=== PATIENT | female | born 1965 | race Caucasian/White ===

== ENCOUNTER 2020-04-09 14:02 | Outpatient (CLI) | payer OTHER, SELFPAY ==
--- NOTE | ~2020-04-09 | MM_ITS ---
EXAMINATION: MM screening [facility] HISTORY: Screening TECHNIQUE: Craniocaudal and mediolateral oblique 3-D tomosynthesis images were obtained and synthetic 2-D images were generated. CAD analysis was submitted and interpreted. COMPARISON: Comparison to multiple prior studies sequentially, with oldest reviewed study dated 09/14. BREAST PARENCHYMAL COMPOSITION: There are scattered areas of fibroglandular density. FINDINGS: Stable benign-appearing calcifications. There is no evidence of suspicious mass, calcificat ion, or architectural distortion to suggest malignancy in either breast. There has been no suspicious interval change. IMPRESSION: 1. No mammographic evidence of malignancy. 2. Recommend routine screening mammography in one year. BI-RADS Category 2: Benign finding(s). Reviewed, dictated and finalized at location A.
== END 2020-04-09 14:03 | disposition home or self-care (01) ==
LOC: ANHIMG 14:05
PROVIDERS: PCP Family Medicine; Visit Provider Student in an Organized Health Care Education/Training Program
DX: Z12.31 Encounter for screening mammogram for malignant neoplasm of breast (principal)
CPT/HCPCS: 77063; 77067

== ENCOUNTER 2021-05-01 10:37 | Outpatient (CLI) | payer OTHER, SELFPAY ==
--- NOTE | ~2021-05-01 | MM_ITS ---
EXAMINATION: MM screening [facility] w j carlos HISTORY: Screening TECHNIQUE: Craniocaudal and mediolateral oblique 3-D tomosynthesis images were obtained and synthetic 2-D images were generated. CAD analysis was submitted and interpreted. COMPARISON: Comparison to multiple prior studies sequentially, with oldest reviewed study dated 02/18. BREAST PARENCHYMAL COMPOSITION: There are scattered areas of fibroglandular density. FINDINGS: Stable appearance to benign-appearing bilateral breast calcifications. There is no evidence of suspicious mass, calcification, or architectural distortion to suggest malignancy in either breas t. There has been no suspicious interval change. IMPRESSION: 1. No mammographic evidence of malignancy. 2. Recommend routine screening mammography in one year. BI-RADS Category 1: Negative Reviewed, dictated and finalized at location A.
== END 2021-05-01 10:38 | disposition home or self-care (01) ==
LOC: ANHIMG 10:46
PROVIDERS: PCP Family Medicine; Visit Provider Student in an Organized Health Care Education/Training Program
DX: Z12.31 Encounter for screening mammogram for malignant neoplasm of breast (principal)
CPT/HCPCS: 77063; 77067

== ENCOUNTER 2021-05-07 02:21 | Day surgery (SDC) | payer OTHER, SELFPAY ==
[2021-04-22 14:13] VITALS: BMI 37.5
--- NOTE | 2021-05-06 14:30 | WPDANESEPPF ---
Anes - Initial Pre Proc Eval Procedure: Operation Date: 05/07/21 09:45 Proposed Procedures p Esophagogastroduodenoscopy - Vickey Cole MD Date/Time: 05/06/21 14:30 Surgeon: Vickey Cole MD Pre Op Diagnosis: dysphagia Patient Data Age: 56 Gender: F Height: 1.65 m Weight: 102.2 kg Allergies Allergy/AdvReac Type Severity Reaction Status Date / Time sulfamethoxazole Allergy Intermediate HIVES Verified 05/07/21 08:16 azithromycin Allergy Unknown counter Verified 05/07/21 08:16 acts with other medication sulfamethizole Allergy Unknown rash Verified 05/07/21 08:16 trimethoprim Allergy Unknown Hives Verified 05/07/21 08:16 Home Medications Medication Instructions Recorded Confirmed Type cetirizine 10 mg capsule 10 mg PO DAILY 08/17/19 05/07/21 History fingolimod 0.5 mg capsule 0.5 mg PO DAILY 08/17/19 05/07/21 History modafinil 200 mg tablet 200 mg PO BID 08/17/19 05/07/21 History amlodipine 10 mg tablet See Rx Instructions .ROUTE 01/17/20 05/07/21 Rx .COMPLEX #90 tablet omeprazole 40 mg capsule,delayed 40 mg PO DAILY #90 cap 07/14/20 05/07/21 Rx release montelukast 10 mg tablet 10 mg PO DAILY #90 tablet 08/04/20 05/07/21 Rx alprazolam 0.5 mg tablet 0.5 mg PO QHS PRN 12/11/20 05/07/21 History calcium citrate malate-vitamin D3 1 tablet PO DAILY 12/11/20 05/07/21 History 500 mg-200 unit tablet cholecalciferol (vitamin D3) 50 50 mcg PO DAILY 12/11/20 05/07/21 History mcg (2,000 unit) capsule irbesartan 300 mg tablet See Rx Instructions .ROUTE 12/15/20 05/07/21 Rx .COMPLEX #90 tablet ferrous gluconate 240 mg (27 mg See Rx Instructions .ROUTE 12/25/20 05/07/21 Rx iron) tablet .COMPLEX #60 tablet adcteanrjh-czqeuaq-mercdnjl 50 1 cap PO Q4H #90 cap 12/30/20 05/07/21 Rx mg-325 mg-40 mg capsule hydrochlorothiazide 12.5 mg tablet See Rx Instructions .ROUTE 01/15/21 05/07/21 Rx .COMPLEX #90 tablet estradiol 2 mg tablet See Rx Instructions .ROUTE 03/04/21 05/07/21 Rx .COMPLEX #90 tablet amoxicillin 875 mg-potassium 1 tablet PO BID #20 tablet 03/20/21 05/07/21 Rx clavulanate 125 mg tablet pregabalin 150 mg capsule 150 mg PO BID 03/20/21 05/07/21 History venlafaxine 150 mg tablet,extended 150 mg PO DAILY #90 tablet 03/20/21 05/07/21 Rx release 24 hr venlafaxine 75 mg tablet,extended 75 mg PO DAILY #90 tablet 03/20/21 05/07/21 Rx release 24 hr atorvastatin 10 mg tablet 10 mg PO QHS #90 tablet 03/26/21 05/07/21 Rx Patient hx anesthesia problems: none Family hx anesthesia problems: none Results Review: All pre-operative results and documents have been reviewed as part of the pre-operative evaluation. [facility] Past Medical History Medical History (Updated 05/06/21 @ 14:31 by Contreras Messina MD) Anxiety Chronic GERD Dysphagia Essential (primary) hypertension Herniated disc Hypercholesterolemia Multiple sclerosis Obesity (BMI 35.0-39.9 without comorbidity) Vaginal delivery Surgical History Surgical History History of back surgery History of cholecystectomy History of endometrial ablation History of total hysterectomy [place] teeth removed Family History Family History Father Hypertension Mother Hypertension Family history of lung cancer Grandparent Family history of malignant neoplasm of breast Diabetes mellitus Hypertension Family history of malignant neoplasm of breast in first degree relative Social History Social History (Updated 03/20/21 @ 10:44 by Allegra Cao CMA) Smoking status: Never smoker Second hand tobacco smoke exposure: No Alcohol intake: never Substance use type: does not use Living arrangements: with family Spiritual care concerns: No Anes - Eval Final PreProcedure Day of Procedure 05/06/21 14:30 Patient weight: obese Heart: regular rate and rhythm Lungs: clear to auscultation and n
[2021-05-07 08:17] VITALS: BP 129/87; PULSE 92; RESP 18; TEMP 36.1; O2SAT 100; BMI 37.9
[2021-05-07] MEDS: LACTATED RINGERS 1,000 ML 150 ML IV CONT (08:36)
--- NOTE | 2021-05-07 08:52 | WPDGICN ---
Assessment and Plan Assessment and plan (1) Dysphagia: Qualifiers: Dysphagia type: unspecified Qualified Code(s): R13.10 - Dysphagia, unspecified Code(s): R13.10 - Dysphagia, unspecified Status: Acute Assessment and Plan: Patient has difficulty swallowing. Is difficult to know that whether this is from esophageal narrowing or motility disorder. Plan is for EGD to assess esophagus if narrowing is noted dilatation will be accomplished. If EGD is unremarkable then modified barium swallow with speech therapy assessment is advised. This may be related to her multiple sclerosis. (2) Multiple sclerosis: Code(s): G35 - Multiple sclerosis Status: Acute Assessment and Plan: MS may contribute to difficulty swallowing with motility disorder will assess by EGD initially. (3) Obesity (BMI 35.0-39.9 without comorbidity): Code(s): E66.9 - Obesity, unspecified Status: Acute Assessment and Plan: Patient is is overweight. Suggest calorie restriction and increase activity if at all possible. GI Consult Note Consult date/time: 05/07/21 08:52 HPI: Missy Young is a 56 year old female Presents for EGD. Patient has noticed difficulty clearing of throat for several months. She states that when eating meat that is stringy she will sometimes feel as though she is choking. She presents today for EGD to assess difficulty swallowing. She denies any bleeding or weight loss. Her past history is significant for multiple sclerosis. An EGD will be performed today. Review of Systems Review of Systems: All systems reviewed & are unremarkable except as noted in HPI and below PMFSH Past Medical History Medical History (Updated 05/06/21 @ 14:31 by Contreras Messina MD) Anxiety Chronic GERD Dysphagia Essential (primary) hypertension Herniated disc Hypercholesterolemia Multiple sclerosis Obesity (BMI 35.0-39.9 without comorbidity) Vaginal delivery Surgical History Surgical History History of back surgery History of cholecystectomy History of endometrial ablation History of total hysterectomy [place] teeth removed Family History Family History Father Hypertension Mother Hypertension Family history of lung cancer Grandparent Family history of malignant neoplasm of breast Diabetes mellitus Hypertension Family history of malignant neoplasm of breast in first degree relative Social History Social History (Updated 03/20/21 @ 10:44 by Allegra Cao [facility]) Smoking status: Never smoker Second hand tobacco smoke exposure: No Alcohol intake: never Substance use type: does not use Living arrangements: with family Spiritual care concerns: No Meds Home Medications and Allergies Home Medications Medication Instructions Recorded Confirmed Type cetirizine 10 mg capsule 10 mg PO DAILY 08/17/19 05/07/21 History fingolimod 0.5 mg capsule 0.5 mg PO DAILY 08/17/19 05/07/21 History modafinil 200 mg tablet 200 mg PO BID 08/17/19 05/07/21 History amlodipine 10 mg tablet See Rx Instructions .ROUTE 01/17/20 05/07/21 Rx .COMPLEX #90 tablet omeprazole 40 mg capsule,delayed 40 mg PO DAILY #90 cap 07/14/20 05/07/21 Rx release montelukast 10 mg tablet 10 mg PO DAILY #90 tablet 08/04/20 05/07/21 Rx alprazolam 0.5 mg tablet 0.5 mg PO QHS PRN 12/11/20 05/07/21 History calcium citrate malate-vitamin D3 1 tablet PO DAILY 12/11/20 05/07/21 History 500 mg-200 unit tablet cholecalciferol (vitamin D3) 50 50 mcg PO DAILY 12/11/20 05/07/21 History mcg (2,000 unit) capsule irbesartan 300 mg tablet See Rx Instructions .ROUTE 12/15/20 05/07/21 Rx .COMPLEX #90 tablet ferrous gluconate 240 mg (27 mg See Rx Instructions .ROUTE 12/25/20 05/07/21 Rx iron) tablet .COMPLEX #60 tablet oxuavzivab-rxccpgo-hjidtozv 50 1 cap PO Q4H #90 cap 12/30/20 1
[2021-05-07 09:45] VITALS: BP 82/57; PULSE 77; RESP 19; O2SAT 99
[2021-05-07 09:55] VITALS: BP 126/68; PULSE 76; RESP 17; O2SAT 99
[2021-05-07 10:05] VITALS: BP 119/72; PULSE 75; RESP 23; O2SAT 98
== END 2021-05-07 10:14 | disposition home or self-care (01) ==
PROVIDERS: PCP Family Medicine; Visit Provider Internal Medicine Gastroenterology
PROC: 0DJ08ZZ Inspection of Upper Intestinal Tract, Via Natural or Artificial Opening Endoscopic (ICD-10-PCS; CPT 43235; principal; 2021-05-07 09:45)
DX: R13.10 Dysphagia, unspecified (principal); K21.9 Gastro-esophageal reflux disease without esophagitis; G35 Multiple sclerosis; E66.9 Obesity, unspecified; Z68.37 Body mass index [BMI] 37.0-37.9, adult; I10 Essential (primary) hypertension; E78.00 Pure hypercholesterolemia, unspecified; F41.9 Anxiety disorder, unspecified
CPT/HCPCS: 43450; 43235; J2001; J2704; J7120

== ENCOUNTER → 2021-09-28 14:40 | Outpatient (CLI) | payer OTHER, SELFPAY ==
--- NOTE | ~2021-09-28 | XR_ITS ---
EXAMINATION: XR hand RT min 3V DATE: 09/28/2021 14:57 INDICATION: Joint pain at the right hand TECHNIQUE: Posteroanterior, oblique and lateral views of the right hand were obtained. COMPARISON: None. FINDINGS: 3 mm ulnar minus variance. Alignment is otherwise normal. No fracture. Joint spaces are normal. No er osions to suggest inflammatory arthritis. Soft tissues are unremarkable. IMPRESSION: 1. 3 mm ulnar minus variance. Otherwise unremarkable right hand radiographs. Reviewed, dictated and finalized at location B.
== END ==
PROVIDERS: PCP Family Medicine; Visit Provider Physician Assistant
DX: M25.541 Pain in joints of right hand (principal)
CPT/HCPCS: 73130

== ENCOUNTER 2021-12-02 11:30 | Outpatient (CLI) | payer OTHER, SELFPAY ==
--- NOTE | 2021-12-02 11:43 | ECG_ITS ---
Measurements Intervals [place] Rate: 93 P: 33 NM: 171 QRS: -18 QRSD: 108 T: 106 QT: 368 QTc: 459 Interpretive Statements SINUS RHYTHM LEFT VENTRICULAR HYPERTROPHY AND ST-T CHANGE [VOLTAGE CRITERIA PLUS ST/T ABNORMALITY] NO PREVIOUS ECG AVAILABLE FOR COMPARISON Electronically Signed On 12-02-2021 22:13:07 CDT by Elaina Phillips M.D.
[2021-12-02 12:10] LABS: Hematocrit 36.2 % (37.0-47.0); Hemoglobin 11.5 g/dL (12.0-15.0)
[2021-12-02 12:25] LABS: Anion Gap 6 mmol/L (8-16); Blood Urea Nitrogen 22 mg/dL (7-17); Calcium 8.7 mg/dL (8.4-10.2); Carbon Dioxide 26 mmol/L (22-30); Chloride 105 mmol/L (98-107); Estimated Glomerular Filt Rate > 60; Glucose 133 mg/dL (65-110); Potassium 3.9 mmol/L (3.4-5.0); Sodium 137 mmol/L (137-145)
== END 2021-12-02 11:31 | disposition home or self-care (01) ==
LOC: ANHSURGERY 11:35
PROVIDERS: Anesthesiology; PCP Family Medicine; Visit Provider Plastic Surgery
DX: Z01.818 Encounter for other preprocedural examination (principal); D64.9 Anemia, unspecified; Z51.81 Encounter for therapeutic drug level monitoring; Z79.899 Other long term (current) drug therapy; I10 Essential (primary) hypertension
CPT/HCPCS: 36415; 80048; 85014; 85018; 93005

== ENCOUNTER 2021-12-03 00:43 | Day surgery (SDC) | payer OTHER, SELFPAY ==
[2021-11-27 15:46] VITALS: BMI 38.3
--- NOTE | 2021-11-27 15:53 | SUR.PREOP ---
Report to the Outpatient Waiting Room, entrance under the green pavilion located off [facility], at time _0600 on date 12/03/21 . OR Time: _729 . - You and your visitor will be asked a series of questions to screen for COVID 19 for your protection. - Only one visitor is allowed at this time. - The patient visitor is requested to leave or wait in car when not with patient. - A mask is required within the hospital. Patients may have clear liquids (water, carbonated beverages, clear teas, apple juice) until 3 hours prior to surgery with a maximum of 20 ounces. - No food from midnight until time of surgery - Infants may have breast milk until 4 hours before surgery, infant formula 6 hours prior to surgery. - Children will be allowed to drink immediately following surgery. If applicable, please bring a bottle or sippy cup to assist with drinking. Juice, water, soda, and popsicles are readily available. For infants on formula, please bring formula the day of surgery. Pacifiers are allowed. Take the following medications with a SIP of water the morning of surgery: __ALPRAZOLAM,AMLODIPINE,FINGOLIMOD,PREGABALIN,VENLAFEXINE Medications to discontinue per physician ___VITAMIN SUPPLEMENTS Date to take last dose__11/30/21 Please no make-up, nail swedish, hairspray, perfume, deodorant, or body powder the day of surgery. No jewelry (including any body piercings) or valuables the day of surgery, leave them at home. Please take a shower or bath the night before, or the morning of, surgery with an antibacterial soap. Wear comfortable, loose fitting clothing. Children are encouraged to wear pajamas. - Jewelry must be removed prior to entering the operating room. Rings and piercings that are not removed may be cut off. - The hospital will not accept responsibility for valuables. - Please leave all valuables, including medications, at home the day of surgery. If you are going home after surgery, a licensed local owner operator truck driver must drive you home. - NO public transportation without another adult. - We recommend that an adult stay with you for 24 hours following discharge. - We also recommend that you do not drive, make important decision, drink alcoholic beverages, or take any drugs that were not prescribed by your health care provider for at least 24 hours after your discharge time. For Pediatric surgeries, we recommend two adults accompany the child home (only one inside the building at this time). Follow any additional instructions given to you from your surgeon. If you or anyone in your household have experienced Covid symptoms in the past week, please notify your surgeon or the nurse liaison at the phone number below for possible testing. Telephone instructions given to MANUEL ANTONY and asked if any additional questions and then verbalized understanding. Patient advised to call surgeon office or pre surgery nurse liaison [phone] if any additional questions.
[2021-12-03] VITALS (8 sets, daily range): BP systolic 119–134; BP diastolic 54–81; PULSE 78–94; RESP 12–18; TEMP 36.3–36.8; O2SAT 95–100
--- NOTE | ~2021-12-03 | XR_ITS ---
EXAMINATION: XR surgery orthopedic DATE: 12/03/2021 09:11 INDICATION: Chronic right-sided gamekeeper's thumb. TECHNIQUE: 4 intraoperative fluoroscopic views of right thumb were obtained. I was not present. Fluor oscopy exposure time was 31 seconds. COMPARISON: Right hand radiographs 09/28/21 FINDINGS: There are surgical changes at the ulnar aspects of head of first metacarpal and base of fir st proximal phalanx. IMPRESSION: 1. Ulnar collateral ligament repair of metacarpophalangeal joint of right thumb. Reviewed, dictated and finalized at location A. IMPRESSION: 1. Ulnar collateral ligament repair of metacarpophalangeal joint of right thumb .
--- NOTE | 2021-12-03 06:49 | WPDANESEPPF ---
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 Patient Data Age: 56 Gender: F Height: 1.65 m Weight: 106.5 kg Allergies Allergy/AdvReac Type Severity Reaction Status Date / Time azithromycin Allergy Intermediate counter Verified 12/03/21 06:33 acts with other medication sulfamethizole Allergy Intermediate rash Verified 12/03/21 06:33 sulfamethoxazole Allergy Intermediate HIVES Verified 12/03/21 06:33 trimethoprim Allergy Intermediate Hives Verified 12/03/21 06:33 Home Medications Medication Instructions Recorded Confirmed Type cetirizine 10 mg capsule (Zyrtec) 10 mg PO BID 08/17/19 11/27/21 History fingolimod 0.5 mg capsule (Gilenya) 0.5 mg PO DAILY 08/17/19 12/03/21 History modafinil 200 mg tablet 200 mg PO BID 08/17/19 11/27/21 History alprazolam 0.5 mg tablet 0.5 mg PO QHS PRN Anxiety 12/11/20 11/27/21 History calcium citrate malate-vitamin D3 1 tablet PO DAILY 12/11/20 11/27/21 History 500 mg-200 unit tablet cholecalciferol (vitamin D3) 50 50 mcg PO DAILY 12/11/20 11/27/21 History mcg (2,000 unit) capsule ferrous gluconate 240 mg (27 mg See Rx Instructions .Route 12/25/20 11/27/21 Rx iron) tablet .COMPLEX #60 tabs pregabalin 150 mg capsule (Lyrica) 150 mg PO BID 03/20/21 12/03/21 History irbesartan 300 1 tablet PO DAILY #90 tabs 07/13/21 11/27/21 Rx mg-hydrochlorothiazide 12.5 mg tablet galcanezumab-gnlm 120 mg/mL See Rx Instructions subcut MONTHLY 09/14/21 11/27/21 Rx subcutaneous syringe (Emgality) #2 mL atorvastatin 20 mg tablet 20 mg PO QHS #90 tabs 09/29/21 11/27/21 Rx montelukast 10 mg tablet See Rx Instructions .Route 10/21/21 11/27/21 Rx .COMPLEX #90 tabs venlafaxine 75 mg capsule,extended See Rx Instructions .Route 10/21/21 12/03/21 Rx release 24 hr .COMPLEX #90 caps pantoprazole 40 mg tablet,delayed 40 mg PO QAM #90 tabs 11/16/21 11/27/21 Rx release amlodipine 10 mg tablet 10 mg PO DAILY 11/27/21 12/03/21 History aynkvpxlzm-dpubxpn-kjgabulw 50 1 cap PO WEEKLY 11/27/21 11/27/21 History mg-325 mg-40 mg capsule estradiol 2 mg tablet 2 mg PO DAILY 11/27/21 11/27/21 History venlafaxine 150 mg 1 cap PO DAILY 11/27/21 12/03/21 History capsule,extended release 24 hr diclofenac sodium 75 mg See Rx Instructions .Route 11/30/21 Rx tablet,delayed release .COMPLEX #180 tabs Patient hx anesthesia problems: none Family hx anesthesia problems: none Results Review: All pre-operative results and documents have been reviewed as part of the pre-operative evaluation. [facility] Past Medical History Medical History Anxiety Chronic GERD Dysphagia Essential (primary) hypertension Herniated disc Hypercholesterolemia Multiple sclerosis Obesity (BMI 35.0-39.9 without comorbidity) Vaginal delivery Surgical History Surgical History History of back surgery History of cholecystectomy History of endometrial ablation History of total hysterectomy [place] teeth removed Family History Family History Father Hypertension Mother Hypertension Family history of lung cancer Grandparent Family history of malignant neoplasm of breast Diabetes mellitus Hypertension Family history of malignant neoplasm of breast in first degree relative Social History Social History Smoking status: Never smoker Second hand tobacco smoke exposure: No Alcohol intake: never Substance use type: does not use Living arrangements: with family Spiritual care concerns: No
[2021-12-03] MEDS: LACTATED RINGERS 1,000 ML 30 ML IV CONT (07:03)
--- NOTE | 2021-12-03 07:12 | WPDHPUPDATE1 ---
History and Physical Update Update Date/Time: 12/03/21 07:12 History and Physical has been reviewed, including an updated exam of the patient. There are NO changes in the patient's condition. Risks, benefits, and alternatives have been discussed and questions answered. Patient agrees to proceed with procedure. Possible tendon graft from the forearm.
[2021-12-03] MEDS: ACETAMINOPHEN 500 MG TABLET 1000 MG PO (07:28)
[2021-12-03] MEDS: KETOROLAC 15 MG/ML VIAL (*BKC) IV PUSH (07:28)
[2021-12-03] MEDS: LIDO 1%/EPINEPHRINE/PF 1:200,000 30 ML VIAL XX (09:17)
--- NOTE | 2021-12-03 10:02 | P.OP_ITS ---
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 She was taken to the operating room and placed supine operating table. Instability of this joint with swelling but normal flexion and extension range of motion were again noted. She was given general endotracheal anesthesia. The extremity was prepped and draped in usual fashion. The site was marked for an access incision centered on the ulnar metacarpophalangeal joint . This area was infiltrated with 1% lidocaine with epinephrine. The extremity was exsanguinated with an Onur wrap and the tourniquet inflated to 250 mmHg. The incision was made and skin flaps elevated. The incision in the adductor pollicis was made parallel to the extensor pollicis longus and the aponeurosis was dissected palmar word. The injury to the ulnar collateral ligament was identified as an intraligamentous rupture. The distal portion well inserted and fully usable. The proximal stump was less easily identified but there was no avulsed bone or Stener lesion. With that finding we elected to simply repair the site with an Arthrex internal brace. The Arthrex drill guides, reamers and swivel locks were utilized with the 1.3 mm SutureTape. The sites on the metacarpal head and the base of the proximal phalanx were identified and K-wires were placed in those sites. The wires were over drilled with the 3.5 mm gouge bit and the anchors sunk. The initial pl acement of the the proximal anchor did not provide sufficient stability due to the placement of the anchor being too dorsal. A 2nd swivel lock was placed slightly more palmarward and proximally in the metacarpal . The suture tape from the base of the proximal phalanx was bridged over the ulnar collateral ligament to the new site and fixed to the SwiveLock. The previously placed tape was not removed. It did not seem to interfere with range of motion nor did appreciably improve stability, but was left. This construct appeared to be very satisfactory. The capsule was repaired there was no tear between the volar plate and collateral ligament and no sutures were placed there. The abductor aponeurosis was repaired with 3-0 Prolene. The skin was closed with a running intradermal 4-0 Monocryl. A bulky gauze and radial distal forearm thumb spica splint were applied. Estimated Blood Loss 3 Pathology None sent Complications No immediate complications Disposition PACU
[2021-12-03] MEDS: oxyCODONE HCL (*CRX) 5 MG TAB IR PO (10:42)
== END 2021-12-03 11:52 | disposition home or self-care (01) ==
PROVIDERS: PCP Family Medicine; Visit Provider Plastic Surgery
PROC: (CPT 26540; principal; 2021-12-03 07:30)
DX: S63.418A Traumatic rupture of collateral ligament of other finger at metacarpophalangeal and interphalangeal joint, initial encounter (principal); W19.XXXA Unspecified fall, initial encounter; I10 Essential (primary) hypertension; E78.5 Hyperlipidemia, unspecified; G35 Multiple sclerosis; K21.9 Gastro-esophageal reflux disease without esophagitis; F41.9 Anxiety disorder, unspecified; E66.01 Morbid (severe) obesity due to excess calories; Z68.39 Body mass index [BMI] 39.0-39.9, adult
CPT/HCPCS: 26540; 36415; 80048; 85014; 85018; 93005; A9270; C1713; J1100; J1885; J2250; J2405; J2704; J3010; J7120

== ENCOUNTER 2022-01-29 13:30 | Outpatient (RCR) | payer OTHER, SELFPAY ==
--- NOTE | 2021-12-31 14:52 | OTOPEVAL ---
OCCUPATIONAL THERAPY INITIAL EVALUATION REPORT 12/31/21 Thank you for referring Missy Young to [facility].? The patient is scheduled to be seen for therapy? 1x/week for 4 weeks. Please review, sign, date and return this plan of care LOIS. I agree with and certify that the following plan of care is medically necessary. Referring Physician Date Referring Provider: Alexis Calvin MD *OT Outpatient Evaluation Start: 12/31/21 13:37 Outpatient Past Medical History Past Medical History Source of Past Medical History Recalled from Previous Visit, Confirmed with Patient/Family Neurological History Hx Migraine Yes Hx Multiple Sclerosis Yes Hx Other Neurological Disorders Yes: MS,neuropathy,hands and feet Cardiovascular History Hx Hypercholesterolemia Yes Hx Hypertension Yes Respiratory History Hx Respiratory Disorders No Significant History Gastrointestinal History Hx Cholecystectomy Yes Hx Gastroesophageal Reflux Disease Yes Genitourinary History Hx Kidney Stones Yes: lithotripsy Hx Other Genitourinary Disorders Yes: incontinence with botox injections q 6 months Musculoskeletal History Hx Back Injury Yes: herniated discs Hx Spinal Surgery Yes: lower back Hx Other Musculoskeletal Disorders Yes: MS Hematological History Hx Anemia Yes Endocrine History Hx Endocrine Disorders No Significant History HEENT History Hx Tonsillectomy Yes Hx Sinus Problems Yes Hx Other HEENT Disorders Yes: optic neuritis,swallowing problems with egd Integumentary History Hx Skin Disorders No Significant History Reproductive History Hx Endometriosis Yes Hx Hormone Therapy Yes Hx Tubal Ligation Yes Psychosocial History Hx Anxiety Yes Pain History Has Past Pain Affected Your Daily Life Yes: MS Anesthesia History Hx Anesthesia Reactions No Significant History Evaluation Information Problem Diagnosis s/p repair of chronic right 1st UCL with Arthrex Internal Brace Onset 12/03/21 Subjective Information Patient reports difficulties Query Text:As Reported By Patient/ with using her right hand/ Family thumb - noting being unable to pinch to don/doff a bra, start her car, etc. Pain Assessment Timing of Pain Assessment Timing of Pain Assessment Assessment Pain Scale Pain Scale Used Numeric (1 - 10) Self Report Pain Assessment Right Hand(s) Reported Pain Level 2 Pain Descript
--- NOTE | 2022-01-29 14:22 | OTOPEVAL ---
OCCUPATIONAL THERAPY RE-EVALUATION AND DISCHARGE SUMMARY 01/29/22 Marianne Louis , is a 56 year-old right handed female who is 8 weeks s/p repair of the right thumb UCL. She presents today for re-evaluation. At this time her ROM has returned to normal limits and she is weaning out of her splint for ADL tasks (only wearing for heavy tasks PRN at this time). Her oil seal assembler/pinch strength measurements were taken today and she does exhibit weakness, but she has her HEP to work on this. She is having no pain with oil seal assembler/pinch strength HEP. Overall she has progressed well and is ready for discharged from OT services. Thank you for referring Missy Young to [facility]. Please review, sign, date and return this D/C Note LOIS. I agree with and certify that the following plan of care is medically necessary. 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 Query Text:As Reported By Patient/ States she is weaning out of Family her splint and is now able to picker and sorter load and unload and put away dishes, tying shoes, staring her car, and donning/doffing her bra. Reports some sensitivity in the area of the stitch abscess . Pain Assessment Timing of Pain Assessment Timing of Pain Assessment Re-assessment Pain Scale Pain Scale Used Numeric (1 - 10) Self Report Pain Assessment Right Hand(s) Reported Pain Level 0 Lowest Pain Intensity 0 Greatest Pain Intensity 4 Pain Score Pain Score 0: Self Report Additional Pain Score Comments Experiences some soreness after hand use, rating 4/10 at worst . Upper Extremity Range of Motion Wrist Range of Motion Right Reason Not Measured WNL/Right Finger Range of Motion Right Reason Not Measured WNL/Right Thumb Range of Motion Right Thumb MCP Flexion - Active 75 Thumb IP Flexion - Active 65 Thumb CMC Radial Abduction - Active 50 Thumb CMC Palmar Abduction - Active 50 Thumb Range of Motion Comments thumb active ROM returned to normal limits Hand Rotary Drier Operator/Pinch Strength Assessment Hand Left Rotary Drier Operator Strength (lbs) 41 Lateral Pinch Strength (lbs) 2.5 Palmar Pinch Strength (lbs) 3.5 Right Rotary Drier Operator Strength (lbs) 22 Lateral Pinch Strength (lbs) 1 Palmar Pinch Strength (lbs) 1 Upper Extremity Exercise Finger/Thumb Exercise Right Other Finger/Thumb Exercises Reviewed veroniquety HEP. Issued next strength (red), patient
== END 2022-03-19 13:40 | disposition home or self-care (01) ==
LOC: ANHOT 13:30
PROVIDERS: PCP Family Medicine; Referring Provider Plastic Surgery; Visit Provider Plastic Surgery
DX: Z48.89 Encounter for other specified surgical aftercare (principal)
CPT/HCPCS: 97110; 97165; 97763; L3806

== ENCOUNTER → 2022-02-11 10:35 | Outpatient (CLI) | payer OTHER, SELFPAY ==
--- NOTE | ~2022-02-11 | US_ITS ---
US abdomen complete EXAMINATION: US Abdomen Complete INDICATION: Abnormal liver cyst of serum enzyme PROCEDURE: Realtime High Resolution abdomen ultrasound. COMPARISON: Ultrasound dated 03/27/2005 FINDINGS: Gallbladder is surgically absent. Common bile duct measures 5 mm. Liver echotexture within normal limits without focal mass. Pancreas within normal limits. Pancreati c tail is obscured by bowel gas. Spleen is unremarkeable. Renal echotexture is within normal limits bilaterally without hydronephrosis, contour deforming mass or renal stone. Right kidney measures 8.8 cm. Left kidney measures 9.5 cm. Visualized aspects of the aorta and IVC are within normal limits. Portal vein is patent. No sonograph ic Bella's sign indicated by the technologist. IMPRESSION: 1: Unremarkable abdominal ultrasound postcholecystectomy. Reviewed, dictated and finalized at location B.
== END ==
PROVIDERS: PCP Physician Assistant; Visit Provider Physician Assistant
DX: R74.8 Abnormal levels of other serum enzymes (principal)
CPT/HCPCS: 76700

== ENCOUNTER 2022-03-29 14:14 | Outpatient (NON) | payer OTHER, SELFPAY ==
[2022-03-29 22:35] LABS: IFOB Positive Control Positive; Immunochemical Fecal Occult Bl Negative (N)
== END 2022-03-29 14:15 | disposition home or self-care (01) ==
LOC: ANHGOSHLAB 14:15
PROVIDERS: PCP Emergency Medicine; Visit Provider Physician Assistant
DX: D64.9 Anemia, unspecified (principal)
CPT/HCPCS: 82274

== ENCOUNTER 2022-09-03 15:01 | Outpatient (CLI) | payer OTHER, MEDICARE, SELFPAY ==
[2022-09-03 19:27] LABS: Basophils Percent Auto 0.4 % (0.2-1.2); Eosinophils Absolute Auto 0.2 K/mm3 (0-0.3); Eosinophils Percent Auto 2.1 % (0-4.4); Hematocrit 35.2 % (37.0-47.0); Hemoglobin 11.7 g/dL (12.0-15.0); Immature Granulocyte Absolute 0.04 K/mm3 (0.00-0.031); Immature Granulocyte Percent A 0.5 % (0-0.5); Lymphocytes Absolute Auto 0.86 K/mm3 (0.9-3.2); Lymphocytes Percent Auto 10.7 % (18.3-44.2); Mean Corpuscular HGB Conc 33.2 g/dl (32-36); Mean Corpuscular Hemoglobin 31.1 pg (26-34); Mean Corpuscular Volume 93.6 fl (80-100); Mean Platelet Volume 10.1 fl (7.4-10.4); Monocytes Absolute Auto 0.5 K/mm3 (0.1-0.6); Monocytes Percent Auto 6.1 % (2.6-8.5); Neutrophils Absolute Auto 6.4 K/mm3 (1.3-6.7); Neutrophils Percent Auto 80.2 % (45.5-73.1); Platelet Count Result 362 k/mm3 (150-375); Red Blood Count 3.76 M/mm3 (4.2-5.4); Red Cell Distribution Width 12.6 % (11.5-14.5)
[2022-09-03 19:29] LABS: Alanine Aminotransferase 22 U/L (6-35); Albumin Level 4.2 g/dL (3.5-5.1); Alkaline Phosphatase 126 U/L (38-126); Anion Gap 7 mmol/L (8-16); Aspartate Amino Transferase 32 U/L (14-36); Bilirubin,Total 0.5 mg/dL (0.2-1.3); Blood Urea Nitrogen 19 mg/dL (7-17); Calcium 9.4 mg/dL (8.4-10.2); Carbon Dioxide 29 mmol/L (22-30); Chloride 100 mmol/L (98-107); Cholesterol 232 mg/dL (0-200); Estimated Glomerular Filt Rate > 60; Glucose 96 mg/dL (65-110); HDL Direct 56 mg/dL; Potassium 3.4 mmol/L (3.4-5.0); Sodium 136 mmol/L (137-145); Triglycerides 191 mg/dL (<150)
[2022-09-03 19:36] LABS: Hemoglobin A1C 5.3 % (<5.7)
[2022-09-03 19:40] LABS: LDL Cholesterol Direct 116 mg/dL
[2022-09-03 19:54] LABS: Thyroid Stimulating Hormone 0.979 uIU/mL (0.465-4.680)
== END 2022-09-03 15:02 | disposition home or self-care (01) ==
LOC: ANHGOSHLAB 15:03
PROVIDERS: PCP Emergency Medicine; Visit Provider Emergency Medicine
DX: R73.01 Impaired fasting glucose (principal); I10 Essential (primary) hypertension; E78.00 Pure hypercholesterolemia, unspecified; E66.01 Morbid (severe) obesity due to excess calories; D64.9 Anemia, unspecified; R74.8 Abnormal levels of other serum enzymes; Z79.899 Other long term (current) drug therapy
CPT/HCPCS: 36415; 80053; 80061; 83036; 84443; 85025

== ENCOUNTER 2022-10-18 15:12 | Outpatient (CLI) | payer MEDICARE, OTHER, SELFPAY ==
--- NOTE | ~2022-10-18 | MM_ITS ---
EXAMINATION: MM screening [facility] BI w j carlos HISTORY: Screening mammogram TECHNIQUE: Craniocaudal and mediolateral oblique 3-D tomosynthesis images were obtained and synthetic 2-D images were generated. CAD analysis was submitted and interpreted. COMPARISON: 05/01/2021, 04/09/2020, 04/05/2019 bilateral screening mammogram examinations BREAST PARENCHYMAL COMPOSITION: There are scattered areas of fibroglandular density. FINDINGS: There are scattered bilateral benign calcifications. There is however indeterminate cluster of grouped granular appearing microcalcifications in the lower inner quadrant of the right breast as sociated with approximately 4 x 7.7 mm soft tissue density.. Differential diagnosis includes superfic ial calcifications of a fibroadenoma, but malignancy is not definitively excluded based on this exami nation.. Right diagnostic mammogram and ultrasound are recommended. Otherwise there is no evidence of suspicious mass, calcification, or architectural distortion to sugg est malignancy in either breast. There has been no other suspicious interval change. IMPRESSION: 1. Indeterminant cluster of grouped granular appearing microcalcifications in the lower inner quadran t of the right breast 2. Diagnostic right mammogram and right breast ultrasound examination are recommended BI-RADS Category 0: Incomplete: Needs additional imaging evaluation. Reviewed, dictated and finalized at location A. IMPRESSION: 1. Indeterminant cluster of grouped granular appearing microcalcifications in t he lower inner quadrant of the right breast 2. Diagnostic right mammogram and right breast ultrasound examination are recom mended BI-RADS Category 0: Incomplete: Needs additional imaging evaluation.
== END 2022-10-18 15:13 | disposition home or self-care (01) ==
PROVIDERS: PCP Emergency Medicine; Visit Provider Physician Assistant
DX: Z12.31 Encounter for screening mammogram for malignant neoplasm of breast (principal); R92.8 Other abnormal and inconclusive findings on diagnostic imaging of breast
CPT/HCPCS: 77063; 77067

== ENCOUNTER 2022-11-09 13:16 | Outpatient (CLI) | payer MEDICARE, OTHER, SELFPAY ==
--- NOTE | ~2022-11-09 | MM_ITS ---
EXAMINATION: MM diagnostic mammo unilat RT HISTORY: Right breast calcifications on screening mammogram TECHNIQUE: Additional images of the right breast were performed and synthetic 2-D images were generat ed. CAD analysis was submitted and interpreted. COMPARISON: 10/18/2022, 05/01/2021, 04/09/2020 FINDINGS: There are faint grouped calcifications in the middle third of the lower breast at the 6:00 location approximately 8 cm from the nipple which appear to be round in morphology but are difficult to characterize due to their small size. IMPRESSION: 1. Probably benign right breast calcifications. 2. Recommend 6 month follow-up right diagnostic mammogram and possible ultrasound. BI-RADS category 3, probably benign findings. Reviewed, dictated and finalized at location A. IMPRESSION: 1. Probably benign right breast calcifications. 2. Recommend 6 month follow-up right diagnostic mammogram and possible ultrasou nd. BI-RADS category 3, probably benign findings.
== END 2022-11-09 13:17 | disposition home or self-care (01) ==
PROVIDERS: PCP Emergency Medicine; Visit Provider Physician Assistant
DX: R92.8 Other abnormal and inconclusive findings on diagnostic imaging of breast (principal)
CPT/HCPCS: 77065

== ENCOUNTER 2023-04-29 11:37 | Inpatient (IN) | payer MEDICARE, OTHER, SELFPAY ==
[2023-04-29] VITALS (24 sets, daily range): BP systolic 102–131; BP diastolic 46–78; PULSE 100–113; RESP 13–32; TEMP 37.1–38.4; O2SAT 92–99; BMI 40.5
--- NOTE | ~2023-04-29 | XR_ITS ---
EXAMINATION: XR chest 1V portable DATE: 04/29/2023 12:17 INDICATION: Cough and fever. TECHNIQUE: A single frontal view of the chest was obtained. COMPARISON: Chest 2 views 01/17/2017 FINDINGS: There are airspace opacities in all right lung zones, worst in the mid and lower lung zones . There are mild airspace opacities in left lower lung zone. No pleural effusion or pneumothorax. The heart size is normal. Surgical clips in the right upper quadrant are likely from cholecystectomy. IMPRESSION: 1. Predominantly right-sided lung disease, consistent with pneumonia. Reviewed, dictated and finalized at location E.
--- NOTE | ~2023-04-29 | XR_ITS ---
EXAMINATION: XR chest 2V DATE: 05/02/2023 12:10 INDICATION: COVID pneumonia TECHNIQUE: AP and lateral views of the chest are obtained. COMPARISON: 04/29/2023 FINDINGS: Diffuse airspace opacities of the right lung and left basilar airspace opacities persist bu t have decreased. There are small pleural effusions. No pneumothorax is identified. The cardiomediast inal silhouette is normal. There is mild thoracic spondylosis. IMPRESSION: 1. Improved diffuse lung disease, consistent with pneumonia. Reviewed, dictated and finalized at location B. PRODUCTS DEMONSTRATOR
--- NOTE | 2023-04-29 12:14 | ED.URI ---
HPI - URI/Sore Throat General Chief Complaint: Upper Respiratory Infection Stated Complaint: sob, cough Time Seen by Provider: 04/29/23 12:02 History of Present Illness HPI Narrative: Patient is a 58-year-old female who presents to the emergency department to this afternoon complaining of cough, shortness of breath, and fevers. Patient states that she tested positive for COVID in February and ever since then she has had a lingering cough, however, she was feeling well until a few days ago where she started to feel ill again. She called her primary care physician who called in a prescription for Tessalon Perles and another medication she cannot remember at this time which the patient had filled yesterday. Patient states that throughout the night she started to have chills and became very short of breath and at this morning she decided to come to the emergency department for further evaluation. Patient denies any chest pain, nausea, vomiting, abdominal pain, dysuria, hematuria, constipation, diarrhea, melena or hematochezia. She also denies any headaches, dizziness, lightheadedness, blurry visions, focal weakness, numbness and or tingling. There are no other modifying, alleviating, or precipitating factors at this time. Related Data Home Medications Medication Instructions Recorded Confirmed cetirizine 10 mg capsule (Zyrtec) 10 mg PO BID 08/17/19 04/29/23 fingolimod 0.5 mg capsule (Gilenya) 0.5 mg PO DAILY 08/17/19 04/29/23 modafinil 200 mg tablet 200 mg PO BID 08/17/19 04/29/23 pregabalin 150 mg capsule (Lyrica) 150 mg PO ONCE 03/20/21 04/29/23 Vitamin D3 250 mcg BYMOUTH DAILY 04/29/23 04/29/23 amlodipine 10 mg tablet 10 mg PO DAILY 04/29/23 04/29/23 diclofenac sodium 75 mg PO BID 04/29/23 04/29/23 montelukast 10 mg tablet 10 mg PO DAILY 04/29/23 04/29/23 oxybutynin chloride 10 mg 10 mg PO DAILY 04/29/23 04/29/23 tablet,extended release 24 hr Allergies Allergy/AdvReac Type Severity Reaction Status Date / Time azithromycin Allergy Intermediate counter Verified 04/29/23 11:56 acts with other medication sulfamethizole Allergy Intermediate rash Verified 04/29/23 11:56 sulfamethoxazole Allergy Intermediate HIVES Verified 04/29/23 11:56 trimethoprim Allergy Intermediate Hives Verified 04/29/23 11:56 Review of Systems Review of Systems: All systems are reviewed and are negative unless stated otherwise in the HPI. [facility] Past Medical History Medical History Anxiety Chronic GERD Dysphagia Essential (primary) hypertension Herniated disc Hypercholesterolemia Multiple sclerosis Obesity (BMI 35.0-39.9 without comorbidity) Urinary urgency Surgical History Surgical History H/O hand surgery Repair of chronic right 1st metacarpophalangeal joint ulnar collateral ligament with Arthrex internal brace Dr. 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 Surrogate decision maker: Selina Young, daughter if unable to contact her . Okay with Timmy and Ilene Little (uncle and aunt) obtaining medical information/updates over the phone. Code Status: Full Code. Smoking status: Never smoker Second hand tobacco smoke exposure: No Alcohol intake: never Substance
[2023-04-29] MEDS: ACETAMINOPHEN 325 MG TABLET 650 MG PO (12:32)
[2023-04-29 12:37] LABS: Hematocrit 32.1 % (37.0-47.0); Hemoglobin 10.5 g/dL (12.0-15.0); Mean Corpuscular HGB Conc 32.7 g/dl (32-36); Mean Corpuscular Hemoglobin 30.1 pg (26-34); Mean Platelet Volume 9.8 fl (7.4-10.4); Platelet Count Result 291 k/mm3 (150-375); Red Blood Count 3.49 M/mm3 (4.2-5.4); White Blood Count 10.9 K/mm3 (4.5-10.0)
[2023-04-29 12:43] LABS: Alanine Aminotransferase 41 U/L (6-35); Albumin Level 3.6 g/dL (3.5-5.1); Alkaline Phosphatase 159 U/L (38-126); Anion Gap 4 mmol/L (8-16); Aspartate Amino Transferase 64 U/L (14-36); Blood Urea Nitrogen 21 mg/dL (7-17); Calcium 8.5 mg/dL (8.4-10.2); Carbon Dioxide 28 mmol/L (22-30); Chloride 102 mmol/L (98-107); Estimated CRCL calculation 100 ml/min; Estimated Glomerular Filt Rate > 60; Glucose 129 mg/dL (65-110); Potassium 3.4 mmol/L (3.4-5.0); Sodium 134 mmol/L (137-145)
[2023-04-29 12:48] LABS: Band Neutrophils Percent 26 % (0-6); Lymphocytes Absolute Manual 0.21 K/mm3 (1.1-4.5); Monocytes Absolute Manual 0.21 K/mm3 (0.1-0.90); Monocytes Percent Manual 2 % (3-9); Neutrophils Absolute Manual 10.46 K/mm3 (1.7-7.2); Neutrophils Percent Manual 70 % (46-73); Platelet Estimate Adequate (Adequate); Total Cells Counted 100
[2023-04-29 12:49] LABS: Schistocytes None Seen (NORMAL)
[2023-04-29 12:53] LABS: Influenza A QL RT-PCR Negative (Negative); Influenza B QL RT-PCR Negative (Negative); RSV RNA, RT-PCR Negative (Negative); SARS-CoV-2 RNA PCR Positive (Negative)
[2023-04-29] MEDS: SODIUM CHLORIDE 0.9% IV 500 ML 50 ML IV CONT (13:39)
[2023-04-29] MEDS: SODIUM CHLORIDE 0.9% IV 1,000 ML 999 ML IV CONT (13:39)
[2023-04-29 14:03] LABS: Lactic Acid Reflex 1.5 mmol/L (0.7-2.0)
[2023-04-29] MEDS: DOXYCYCLINE 100 MG/NS 100 ML 100 MG/100 ML BAG IVPB (14:20)
--- NOTE | 2023-04-29 16:03 | PC.NURSE ---
This patient, Missy Young, was admitted to Medical Room 247-. Patient/family oriented to hospital policies and general routines including ID bracelet, bed and alarms, visiting hours, pain management, procedures, bathroom and other care routines, personal items, smoking policy, room service/diet, and visiting hours. Information on how to activate the Rapid Response Team has been discussed. Patient/Family are encouraged to report perceived risks to care and to ask questions if they do not understand what they are told or what they should do.
[2023-04-29] MEDS: ONDANSETRON INJ 4 MG/2 ML VIAL IV PUSH (18:52)
[2023-04-29] MEDS: DICLOFENAC SOD 75 MG TABLET.EC PO (18:52)
--- NOTE | 2023-04-29 19:00 | PM.IMHP ---
H&P: HPI History of Present Illness Date/Time: 04/29/23 19:00 Chief Complaint: SOB, Body Aches Narrative: 58-year-old female presents here with shortness of breath, cough, and fatigue with past medical history of anxiety, GERD, HTN, HLD, and MS. Patient reports that she being to feel unwell 2-3 days ago. Originally called her PCP for cough medication. However within the last 24 hours she has become increasingly short of breath, weak, and fatigued. Patient has been experiencing subjective fevers, body aches, and intermittent sputum production. Tested positive for COVID on 04/12. Had time after intial illness where she felt better. Only other sick contact is her father, also began feeling unwell and is currently admitted at this hospital. Told he does not have pneumonia, COVID, flu and is being treated for a UTI. after arrival to the emergency department was noted that she was satting 90% on room air. Placed on 2 L nasal cannula with improvement in saturation to 95%. She currently denies chest pain, nausea, vomiting, or diarrhea. Patient is currently on an immune modulator for her MS, follows with Neurology. Review of Systems Review of Systems: All systems reviewed & are unremarkable except as noted in HPI and below PMFSH Past Medical History Medical History Anxiety Chronic GERD Dysphagia Essential (primary) hypertension Herniated disc Hypercholesterolemia Multiple sclerosis Obesity (BMI 35.0-39.9 without comorbidity) Urinary urgency Surgical History Surgical History H/O hand surgery Repair of chronic right 1st metacarpophalangeal joint ulnar collateral ligament with Arthrex internal brace Dr. 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 Surrogate decision maker: Selina Young, daughter if unable to contact her . Okay with Timmy and Ilene Little (uncle and aunt) obtaining medical information/updates over the phone. Code Status: Full Code. Smoking status: Never smoker Second hand tobacco smoke exposure: No Alcohol intake: never Substance use: never Substance use type: does not use Lack of Transportation: No Lack of Food: Never True Current Housing: I Have Housing Concerned About Future Housing: No Difficulty Paying Gas/Electric Bills: No Difficulty Paying for Meds: No Currently Unemployed: No Education: Associate Degree Difficulty w/ Childcare or Family Care: No Living arrangements: with family Occupation/Education: other Additional occupation/education comments: Disability Gender identity (if verbalized by the patient): Female Sexual Orientation (if Verbalized by the Patient): Straight or Heterosexual Spiritual care concerns: No Meds Home Medications and Allergies Home Medications Medication Instructions Recorded Confirmed Type cetirizine 10 mg capsule (Zyrtec) 10 mg PO BID 08/17/19 04/29/23 History fingolimod 0.5 mg capsule (Gilenya) 0.5 mg PO DAILY 08/17/19 04/29/23 History modafinil 200 mg tablet 200 mg PO BID 08/17/19 04/29/23 History pregabalin 150 mg capsule (Lyrica) 150 mg PO ONCE 03/20/21 04/29/23 History irbesartan 300 1 tablet PO DAILY #90 tabs 07/27/22 04/29/23 Rx mg-hydrochlorothiazid
[2023-04-29] MEDS: LORATADINE 10 MG TABLET PO (21:18)
[2023-04-29] MEDS: modafiniL (*CRX) 200 MG TABLET PO (21:18)
[2023-04-29] MEDS: ACETAMINOPHEN 325 MG TABLET PO (22:24)
[2023-04-30] MEDS: BENZONATATE 100 MG CAPSULE PO ×2 (00:19→21:39)
[2023-04-30] MEDS: DOXYCYCLINE 100 MG/NS 100 ML 100 MG/100 ML BAG IVPB ×2 (01:24→16:44)
[2023-04-30] MEDS: LACTATED RINGERS 1,000 ML 100 ML IV CONT ×2 (01:24→21:40)
[2023-04-30 04:00] VITALS: BP 108/61; PULSE 79; RESP 12; TEMP 36.7; O2SAT 94
[2023-04-30 04:55] LABS: Hematocrit 28.8 % (37.0-47.0); Hemoglobin 9.1 g/dL (12.0-15.0); Mean Corpuscular HGB Conc 31.6 g/dl (32-36); Mean Platelet Volume 10.3 fl (7.4-10.4); Platelet Count Result 278 k/mm3 (150-375); Red Blood Count 3.03 M/mm3 (4.2-5.4); Red Cell Distribution Width 14.5 % (11.5-14.5); White Blood Count 11.5 K/mm3 (4.5-10.0)
[2023-04-30 05:06] LABS: Alanine Aminotransferase 33 U/L (6-35); Alkaline Phosphatase 131 U/L (38-126); Anion Gap 4 mmol/L (8-16); Aspartate Amino Transferase 41 U/L (14-36); Bilirubin,Total 1.2 mg/dL (0.2-1.3); Blood Urea Nitrogen 18 mg/dL (7-17); Calcium 7.5 mg/dL (8.4-10.2); Carbon Dioxide 28 mmol/L (22-30); Chloride 104 mmol/L (98-107); Estimated CRCL calculation 81 ml/min; Estimated Glomerular Filt Rate > 60; Glucose 104 mg/dL (65-110); Potassium 3.2 mmol/L (3.4-5.0); Sodium 136 mmol/L (137-145)
--- NOTE | 2023-04-30 07:14 | PM.IMPN ---
Progress Note: A&P Assessment and Plan (1) Pneumonia: Qualifiers: Pneumonia type: due to unspecified organism Code(s): J18.9 - Pneumonia, unspecified organism Status: Acute Assessment and Plan: 1. pneumonia new oxygen requirement (2L NC), 90% on RA. continue supplementation. CXR: airspace opacities in all right lung zones, worst in the mid and lower lung zones. There are mild airspace opacities in left lower lung zone. consistent with PNA. tx initiated for CAP: doxycycline and ceftriaxone, continue. allergy to azithromycin. May need to escalated to Cefe/Vanco given her immunosuppression. Mild increase in leukocytosis since admission. Will correlate clinically. sputum culture MRSA screen pending tyl/codeine PO PRN TYL prn for fever or pain Tessalon Perles p.r.n. for cough + guaifenesin/DM monitor daily labs She completed a course of Paxlovid when initially diagnosed. Since she is immunocompromised she is still testing positive for COVID. I spoke with the pharmacist and there are recent suggestions that those who are immunocompromised may need extended courses or repeat courses of remdesivir or Paxlovid. Will add on Remdesivir to her regimen. Okay to use with mild transaminitis, only contraindicated when liver enzymes are 10 x greater than the normal. (2) Sepsis: Code(s): A41.9 - Sepsis, unspecified organism Status: Acute Assessment and Plan: 2. sepsis SIRS Criteria: +temp of 38.4C, HR 113, RR 25. no evidence of organ failure. lactate WNL. blood cultures sent, pending aggressive fluid resuscitation not indicated. Patient is not hypotensive and lactate is within normal limits. Will continue with gentle fluid support, given 1 L in ED. LR 100 mL/hr x2L. Repeat lactate in AM. continue to monitor (3) Elevated liver enzymes: Code(s): R74.8 - Abnormal levels of other serum enzymes Status: Acute Assessment and Plan: 3. elevated liver enzymes likely med related. currently on gilenya for MS, continued due to current condition. monitor LFTs. Stable 04/30 refer back to neuro for possible change in med regimen. Plan Diet: Regular GI Prophylaxis: not currently indicated DVT Prophylaxis: SCDs, Lovenox 40 Lines: pIV Code Status: full code. Of note patient is okay with her aunt and uncle, Timmy and Pat Sansoucie, receiving medical information over the phone if they call for updates. Subjective Date/time seen: 04/30/23 07:14 Interval history: HPI obtained from the chart, 58-year-old female presents here with shortness of breath, cough, and fatigue with past medical history of anxiety, GERD, HTN, HLD, and MS. Patient reports that she being to feel unwell 2-3 days ago.? Originally called her PCP for cough medication.? However within the last 24 hours she has become increasingly short of breath, weak, and fatigued.? Patient has been experiencing subjective fevers, body aches, and intermittent sputum production.? Tested positive for COVID on 04/12.? Had time after initial illness where she felt better.? Only other sick contact is her father, also began feeling unwell and is currently admitted at this hospital.? Told he does not have pneumonia, COVID, flu and is being treated for a UTI.? ? after arrival to the emergency department was noted that she was satting 90% on room air.? Placed on 2 L nasal cannula with improvement in saturation to 95%. She currently denies chest pain, nausea, vomiting, or diarrhea. ? Patient is currently on an immune modulator for her MS, follows with Neurology. 04/30: Mrs. Young is seen today resting in bed. She does not appear to be feeling well but is in no acute respiratory distress. She says that for the last week or 2 she has been having a cough, shortness of breath at rest, weakness, nausea without vomiting, headache, sore throat, dizziness and overall generalized feelings of fatigue. She also reports decr
[2023-04-30] MEDS: POTASSIUM CHLORIDE 20 MEQ ER TABLET 40 MEQ PO (09:27)
[2023-04-30] MEDS: DICLOFENAC SOD 75 MG TABLET.EC PO ×2 (09:30→17:49)
[2023-04-30] MEDS: estradioL 0.5 MG TABLET 2 MG PO (09:31)
[2023-04-30] MEDS: ENOXAPARIN 40 MG/0.4 ML SYRINGE SUB-Q (09:31)
[2023-04-30] MEDS: hydroCHLOROthiazide 12.5 MG CAPSULE PO (09:33)
[2023-04-30] MEDS: IRBESARTAN 150 MG TABLET 300 MG PO (09:33)
[2023-04-30] MEDS: LORATADINE 10 MG TABLET PO ×2 (09:34→21:36)
[2023-04-30] MEDS: modafiniL (*CRX) 200 MG TABLET PO (09:34)
[2023-04-30] MEDS: MONTELUKAST SODIUM 10 MG TABLET PO (09:35)
[2023-04-30] MEDS: oxyBUTYnin CHLORIDE XL 5 MG TAB.ER.24 10 MG PO (09:35)
[2023-04-30] MEDS: PANTOPRAZOLE 40 MG TABLET PO (09:36)
[2023-04-30] MEDS: VENLAFAXINE HCL XR 75 MG CAP.ER.24H PO (09:38)
[2023-04-30] MEDS: VENLAFAXINE HCL XR 75 MG CAP.ER.24H 150 MG PO (09:38)
[2023-04-30] MEDS: amLODIPine BESYLATE 5 MG TABLET 10 MG PO (09:39)
[2023-04-30 13:26] LABS: INR 1.1; Prothrombin Time 14.2 Seconds (11.1-14.7)
[2023-04-30 14:00] VITALS: BP 124/66; PULSE 98; RESP 20; TEMP 36.6; O2SAT 96
[2023-04-30] MEDS: guaiFENesin 600 MG/DEXTROMETHORPHAN 30 MG SR TAB 12 HR 1 TAB PO ×2 (14:54→21:36)
--- NOTE | 2023-04-30 15:00 | PC.NURSE ---
Lost IV access at 1450. Will administer IV antibiotics once new IV access is established.
[2023-04-30] MEDS: PHENOL/SOD PHENO SPRAY CHERRY (*BKC) 1 SPRAY MUCOUS MEM (15:04)
[2023-04-30] MEDS: REMDESIVIR 200 MG/NS 250 ML 200 MG/250 ML BAG 250 MG IVPB (17:50)
[2023-04-30 19:32] VITALS: BP 103/65; PULSE 92; RESP 18; TEMP 36.4; O2SAT 95
[2023-04-30 21:35] VITALS: O2SAT 95
[2023-04-30] MEDS: ACETAMINOPHEN/BUTALBITAL/CAFFEINE 325-50-40 MG TABLET (FIORICET) 1 TAB PO (21:35)
[2023-05-01] MEDS: DOXYCYCLINE 100 MG/NS 100 ML 100 MG/100 ML BAG IVPB ×2 (01:17→15:30)
[2023-05-01] MEDS: ACETAMINOPHEN/BUTALBITAL/CAFFEINE 325-50-40 MG TABLET (FIORICET) 1 TAB PO (02:38)
[2023-05-01] MEDS: BENZONATATE 100 MG CAPSULE PO (04:55)
[2023-05-01 05:15] VITALS: BP 118/71; PULSE 92; RESP 18; TEMP 37; O2SAT 94
[2023-05-01 05:32] LABS: Hematocrit 30.5 % (37.0-47.0); Hemoglobin 9.5 g/dL (12.0-15.0); Mean Corpuscular HGB Conc 31.1 g/dl (32-36); Mean Corpuscular Hemoglobin 29.9 pg (26-34); Mean Corpuscular Volume 95.9 fl (80-100); Mean Platelet Volume 10.1 fl (7.4-10.4); Platelet Count Result 287 k/mm3 (150-375); Red Blood Count 3.18 M/mm3 (4.2-5.4); Red Cell Distribution Width 14.2 % (11.5-14.5); White Blood Count 9.5 K/mm3 (4.5-10.0)
[2023-05-01 05:54] LABS: Alanine Aminotransferase 26 U/L (6-35); Albumin Level 3.3 g/dL (3.5-5.1); Alkaline Phosphatase 134 U/L (38-126); Anion Gap 3 mmol/L (8-16); Aspartate Amino Transferase 29 U/L (14-36); Bilirubin,Total 0.6 mg/dL (0.2-1.3); Blood Urea Nitrogen 11 mg/dL (7-17); Calcium 7.9 mg/dL (8.4-10.2); Carbon Dioxide 27 mmol/L (22-30); Chloride 104 mmol/L (98-107); Estimated CRCL calculation 105 ml/min; Estimated Glomerular Filt Rate > 60; Glucose 105 mg/dL (65-110); Potassium 3.6 mmol/L (3.4-5.0); Sodium 134 mmol/L (137-145)
--- NOTE | 2023-05-01 06:49 | PM.IMPN ---
Progress Note: A&P Assessment and Plan (1) Pneumonia: Code(s): J18.9 - Pneumonia, unspecified organism Status: Acute Assessment and Plan: 1. pneumonia new oxygen requirement (2L NC), 90% on RA. continue supplementation. CXR: airspace opacities in all right lung zones, worst in the mid and lower lung zones. There are mild airspace opacities in left lower lung zone. consistent with PNA. tx initiated for CAP: doxycycline and ceftriaxone, continue. allergy to azithromycin. May need to escalated to Cefe/Vanco given her immunosuppression. Mild increase in leukocytosis since admission. Will correlate clinically. sputum culture MRSA screen pending tyl/codeine PO PRN TYL prn for fever or pain Tessalon Perles p.r.n. for cough + guaifenesin/DM monitor daily labs Leukocytosis is downtrending. She completed a course of Paxlovid when initially diagnosed. Since she is immunocompromised she is still testing positive for COVID. I spoke with the pharmacist and there are recent suggestions that those who are immunocompromised may need extended courses or repeat courses of remdesivir or Paxlovid. Will add on Remdesivir to her regimen. Okay to use with mild transaminitis, only contraindicated when liver enzymes are 10 x greater than the normal. (2) Sepsis: Code(s): A41.9 - Sepsis, unspecified organism Status: Acute Assessment and Plan: 2. sepsis SIRS Criteria: +temp of 38.4C, HR 113, RR 25. no evidence of organ failure. lactate WNL. blood cultures sent, pending aggressive fluid resuscitation not indicated. Patient is not hypotensive and lactate is within normal limits. Will continue with gentle fluid support, given 1 L in ED. LR 100 mL/hr x2L. Repeat lactate in AM. continue to monitor (3) Elevated liver enzymes: Code(s): R74.8 - Abnormal levels of other serum enzymes Status: Acute Assessment and Plan: 3. elevated liver enzymes likely med related. currently on gilenya for MS, continued due to current condition. monitor LFTs. Stable 04/30 and decreasing 05/01 refer back to neuro for possible change in med regimen. (4) Migraine: Qualifiers: Migraine type: unspecified Status migrainosus presence: without status migrainosus Intractability: not intractable Qualified Code(s): G43.909 - Migraine, unspecified, not intractable, without status migrainosus Code(s): G43.909 - Migraine, unspecified, not intractable, without status migrainosus Status: Acute Assessment and Plan: H/O migraine h/a. Typically takes Fingolimod. prn home medication is not working gave 1 x dose of sumatriptan but she vomited shortly after Gave migraine IV cocktail of Toradol 30 mg, Benadryl 50 mg, and Compazine 10 mg. Now sleeping. Plan Diet: Regular GI Prophylaxis: not currently indicated DVT Prophylaxis: SCDs, Lovenox 40 Lines: pIV Code Status: full code. Of note patient is okay with her aunt and uncle, Timmy and Ilene Little, receiving medical information over the phone if they call for updates. Subjective Date/time seen: 05/01/23 06:49 Interval history: HPI obtained from the chart, 58-year-old female presents here with shortness of breath, cough, and fatigue with past medical history of anxiety, GERD, HTN, HLD, and MS. Patient reports that she being to feel unwell 2-3 days ago.? Originally called her PCP for cough medication.? However within the last 24 hours she has become increasingly short of breath, weak, and fatigued.? Patient has been experiencing subjective fevers, body aches, and intermittent sputum production.? Tested positive for COVID on 04/12.? Had time after initial illness where she felt better.? Only other sick contact is her father, also began feeling unwell and is currently admitted at this hospital.? Told he does not have pneumonia, COVID, flu and is being treated for a UTI.? ? after arrival to the emergency department w
[2023-05-01 08:09] VITALS: BP 137/66; PULSE 102; RESP 20; O2SAT 92
[2023-05-01] MEDS: SUMAtriptan SUCCINATE 25 MG TABLET 50 MG PO (08:12)
[2023-05-01] MEDS: ONDANSETRON INJ 4 MG/2 ML VIAL IV PUSH (08:25)
[2023-05-01 09:30] VITALS: O2SAT 92
[2023-05-01] MEDS: KETOROLAC 30 MG/ML VIAL (*BKC) IV PUSH (10:48)
[2023-05-01] MEDS: diphenhydrAMINE HCl INJ 50 MG/ML VIAL IV PUSH (10:48)
[2023-05-01] MEDS: PROCHLORPERAZINE EDISYLATE 10 MG/2 ML VIAL IV PUSH (10:49)
[2023-05-01] MEDS: REMDESIVIR 100 MG/NS 250 ML 100 MG/250 ML BAG 250 MG IVPB (10:58)
[2023-05-01] MEDS: estradioL 0.5 MG TABLET 2 MG PO (13:47)
[2023-05-01] MEDS: ENOXAPARIN 40 MG/0.4 ML SYRINGE SUB-Q (13:47)
[2023-05-01] MEDS: amLODIPine BESYLATE 5 MG TABLET 10 MG PO (13:48)
[2023-05-01] MEDS: IRBESARTAN 150 MG TABLET 300 MG PO (13:49)
[2023-05-01] MEDS: MONTELUKAST SODIUM 10 MG TABLET PO (13:50)
[2023-05-01] MEDS: oxyBUTYnin CHLORIDE XL 5 MG TAB.ER.24 10 MG PO (13:54)
[2023-05-01] MEDS: PANTOPRAZOLE 40 MG TABLET PO (13:56)
[2023-05-01] MEDS: VENLAFAXINE HCL XR 75 MG CAP.ER.24H 150 MG PO (13:56)
[2023-05-01] MEDS: VENLAFAXINE HCL XR 75 MG CAP.ER.24H PO (13:59)
[2023-05-01 14:00] VITALS: BP 140/73; PULSE 105; RESP 20; TEMP 36.7; O2SAT 94
[2023-05-01] MEDS: hydroCHLOROthiazide 12.5 MG CAPSULE PO (14:00)
[2023-05-01] MEDS: DICLOFENAC SOD 75 MG TABLET.EC PO (19:04)
[2023-05-01 20:00] VITALS: O2SAT 94
[2023-05-01] MEDS: LORATADINE 10 MG TABLET PO (20:15)
[2023-05-01] MEDS: guaiFENesin 600 MG/DEXTROMETHORPHAN 30 MG SR TAB 12 HR 1 TAB PO (20:15)
[2023-05-01 21:30] VITALS: BP 124/64; PULSE 99; RESP 20; TEMP 36.6; O2SAT 90
[2023-05-02] VITALS (12 sets, daily range): BP systolic 107–142; BP diastolic 48–68; PULSE 81–96; RESP 16–20; TEMP 36.1–36.9; O2SAT 92–97
[2023-05-02] MEDS: DOXYCYCLINE 100 MG/NS 100 ML 100 MG/100 ML BAG IVPB ×2 (02:01→14:32)
[2023-05-02] MEDS: BENZONATATE 100 MG CAPSULE PO ×2 (02:08→23:02)
[2023-05-02 05:57] LABS: Hematocrit 30.6 % (37.0-47.0); Hemoglobin 9.6 g/dL (12.0-15.0); Mean Corpuscular HGB Conc 31.4 g/dl (32-36); Mean Corpuscular Hemoglobin 29.9 pg (26-34); Mean Corpuscular Volume 95.3 fl (80-100); Mean Platelet Volume 9.9 fl (7.4-10.4); Platelet Count Result 313 k/mm3 (150-375); Red Blood Count 3.21 M/mm3 (4.2-5.4); Red Cell Distribution Width 13.9 % (11.5-14.5); White Blood Count 8.9 K/mm3 (4.5-10.0)
[2023-05-02 06:06] LABS: Alanine Aminotransferase 21 U/L (6-35); Albumin Level 3.2 g/dL (3.5-5.1); Alkaline Phosphatase 122 U/L (38-126); Anion Gap 8 mmol/L (8-16); Aspartate Amino Transferase 25 U/L (14-36); Bilirubin,Total 0.6 mg/dL (0.2-1.3); Blood Urea Nitrogen 12 mg/dL (7-17); Calcium 8.2 mg/dL (8.4-10.2); Carbon Dioxide 24 mmol/L (22-30); Chloride 103 mmol/L (98-107); Estimated CRCL calculation 105 ml/min; Estimated Glomerular Filt Rate > 60; Glucose 91 mg/dL (65-110); Potassium 3.6 mmol/L (3.4-5.0); Sodium 135 mmol/L (137-145)
--- NOTE | 2023-05-02 07:23 | P.PNIM_ITS ---
Progress Note: A&P Assessment and Plan (1) Pneumonia: Code(s): J18.9 - Pneumonia, unspecified organism Status: Acute Assessment and Plan: 03/31/23: * new oxygen requirement (2L NC), 90% on RA. continue supplementation. * CXR: airspace opacities in all right lung zones, worst in the mid and lower lung zones. There are mild airspace opacities in left lower lung zone. consistent with PNA. * tx initiated for CAP: doxycycline and ceftriaxone, continue. allergy to azithromycin. May need to escalated to Cefe/Vanco given her immunosuppression. Mild increase in leukocytosis since admission. Will correlate clinically. * sputum culture * MRSA screen pending * tyl/codeine PO PRN * TYL prn for fever or pain * Tessalon Perles p.r.n. for cough + guaifenesin/DM * monitor daily labs * Leukocytosis is downtrending. * She completed a course of Paxlovid when initially diagnosed. Since she is immunocompromised she is still testing positive for COVID. I spoke with the pharmacist and there are recent suggestions that those who are immunocompromised may need extended courses or repeat courses of remdesivir or Paxlovid. Will add on Remdesivir to her regimen. Okay to use with mild transaminitis, only contraindicated when liver enzymes are 10 x greater than the normal. 04/01/23: * Currently on 2 L nasal cannula, crackles noted to right lower lobe * Will repeat chest x-ray today * Continue Rocephin and doxycycline * Continue with Remdesivir * MRSA was negative * Blood cultures pending * WBC count 8.9 * Start albuterol treatments today * Continue tessalon perles and guaifenesin DM * PT and OT ordered (2) Sepsis: Code(s): A41.9 - Sepsis, unspecified organism Status: Acute Assessment and Plan: 03/31/23: * SIRS Criteria: +temp of 38.4C, HR 113, RR 25. no evidence of organ failure. lactate WNL. * blood cultures sent, pending * aggressive fluid resuscitation not indicated. Patient is not hypotensive and lactate is within normal limits. Will continue with gentle fluid support, given 1 L in ED. LR 100 mL/hr x2L. Repeat lactate in AM. * continue to monitor 04/01/23: * (3) Elevated liver enzymes: Code(s): R74.8 - Abnormal levels of other serum enzymes Status: Acute Assessment and Plan: 03/31/23: * likely med related. currently on gilenya for MS, continued due to current condition. * monitor LFTs. Stable 04/30 and decreasing 05/01 * refer back to neuro for possible change in med regimen. 04/01/23: * no change to current treatment plan (4) Migraine: Qualifiers: Intractability: not intractable Migraine type: unspecified Status migrainosus presence: without status migrainosus Qualified Code(s): G43.909 - Migraine, unspecified, not intractable, without status migrainosus Code(s): G43.909 - Migraine, unspecified, not intractable, without status migrainosus Status: Acute Assessment and Plan: 03/31/23: * H/O migraine h/a. Typically takes Fingolimod. * prn home medication is not working * gave 1 x dose of sumatriptan but she vomited shortly after * Gave migraine IV cocktail of Toradol 30 mg, Benadryl 50 mg, and Compazine 10 mg. Now sleeping. 04/01/23: * C/O of headache again today, will give another Migraine cocktail today as it seemed to help her yesterday * home medication still not helping Time Spent With Patient Time with patient: Greater than 35 minutes Subjective Date/time seen: 05/02/23 07:23 Interval history: Inter
--- NOTE | 2023-05-02 07:23 | PM.IMPN ---
Progress Note: A&P Assessment and Plan (1) Pneumonia: Code(s): J18.9 - Pneumonia, unspecified organism Status: Acute Assessment and Plan: 03/31/23: new oxygen requirement (2L NC), 90% on RA. continue supplementation. CXR: airspace opacities in all right lung zones, worst in the mid and lower lung zones. There are mild airspace opacities in left lower lung zone. consistent with PNA. tx initiated for CAP: doxycycline and ceftriaxone, continue. allergy to azithromycin. May need to escalated to Cefe/Vanco given her immunosuppression. Mild increase in leukocytosis since admission. Will correlate clinically. sputum culture MRSA screen pending tyl/codeine PO PRN TYL prn for fever or pain Tessalon Perles p.r.n. for cough + guaifenesin/DM monitor daily labs Leukocytosis is downtrending. She completed a course of Paxlovid when initially diagnosed. Since she is immunocompromised she is still testing positive for COVID. I spoke with the pharmacist and there are recent suggestions that those who are immunocompromised may need extended courses or repeat courses of remdesivir or Paxlovid. Will add on Remdesivir to her regimen. Okay to use with mild transaminitis, only contraindicated when liver enzymes are 10 x greater than the normal. 04/01/23: Currently on 2 L nasal cannula, crackles noted to right lower lobe Will repeat chest x-ray today Continue Rocephin and doxycycline Continue with Remdesivir MRSA was negative Blood cultures pending WBC count 8.9 Start albuterol treatments today Continue tessalon perles and guaifenesin DM PT and OT ordered (2) Sepsis: Code(s): A41.9 - Sepsis, unspecified organism Status: Acute Assessment and Plan: 03/31/23: SIRS Criteria: +temp of 38.4C, HR 113, RR 25. no evidence of organ failure. lactate WNL. blood cultures sent, pending aggressive fluid resuscitation not indicated. Patient is not hypotensive and lactate is within normal limits. Will continue with gentle fluid support, given 1 L in ED. LR 100 mL/hr x2L. Repeat lactate in AM. continue to monitor 04/01/23: (3) Elevated liver enzymes: Code(s): R74.8 - Abnormal levels of other serum enzymes Status: Acute Assessment and Plan: 03/31/23: likely med related. currently on gilenya for MS, continued due to current condition. monitor LFTs. Stable 04/30 and decreasing 05/01 refer back to neuro for possible change in med regimen. 04/01/23: no change to current treatment plan (4) Migraine: Qualifiers: Intractability: not intractable Migraine type: unspecified Status migrainosus presence: without status migrainosus Qualified Code(s): G43.909 - Migraine, unspecified, not intractable, without status migrainosus Code(s): G43.909 - Migraine, unspecified, not intractable, without status migrainosus Status: Acute Assessment and Plan: 03/31/23: H/O migraine h/a. Typically takes Fingolimod. prn home medication is not working gave 1 x dose of sumatriptan but she vomited shortly after Gave migraine IV cocktail of Toradol 30 mg, Benadryl 50 mg, and Compazine 10 mg. Now sleeping. 04/01/23: C/O of headache again today, will give another Migraine cocktail today as it seemed to help her yesterday home medication still not helping Time Spent With Patient Time with patient: Greater than 35 minutes Subjective Date/time seen: 05/02/23 07:23 Interval history: Interval history 05/02/23: This is a 58 year old female who presented to the hospital on 04/29/23 with SOB, cough, and fatigue. Work up in the hospital includes a Chest x-ray that shown predominantly right sided pneumonia consistent with pneumonia. She had a respiratory panel done as well which shows that she is COVID + however she tested positive for COVID on 04/12/23 and this positive result may not be accurate. Blood cultures and MRSA was obtained. She was started on c
[2023-05-02 08:21] LABS: Magnesium 1.9 mg/dL (1.6-2.3); Phosphorus 2.5 mg/dL (2.5-4.5)
[2023-05-02 08:45] LABS: Procalcitonin 0.5 ng/mL
[2023-05-02] MEDS: guaiFENesin 600 MG/DEXTROMETHORPHAN 30 MG SR TAB 12 HR 1 TAB PO ×2 (09:03→20:21)
[2023-05-02] MEDS: estradioL 1 MG TABLET 2 MG PO (09:03)
[2023-05-02] MEDS: amLODIPine BESYLATE 5 MG TABLET 10 MG PO (09:04)
[2023-05-02] MEDS: VENLAFAXINE HCL XR 75 MG CAP.ER.24H 150 MG PO (09:08)
[2023-05-02] MEDS: DICLOFENAC SOD 75 MG TABLET.EC PO ×2 (09:09→17:42)
[2023-05-02] MEDS: IRBESARTAN 150 MG TABLET 300 MG PO (09:09)
[2023-05-02] MEDS: VENLAFAXINE HCL XR 75 MG CAP.ER.24H PO (09:10)
[2023-05-02] MEDS: hydroCHLOROthiazide 12.5 MG CAPSULE PO (09:10)
[2023-05-02] MEDS: MONTELUKAST SODIUM 10 MG TABLET PO (09:10)
[2023-05-02] MEDS: oxyBUTYnin CHLORIDE XL 5 MG TAB.ER.24 10 MG PO (09:11)
[2023-05-02] MEDS: ACETAMINOPHEN 325 MG TABLET PO (09:11)
[2023-05-02] MEDS: REMDESIVIR 100 MG/NS 250 ML 100 MG/250 ML BAG 250 MG IVPB (09:12)
[2023-05-02] MEDS: ENOXAPARIN 40 MG/0.4 ML SYRINGE SUB-Q (09:12)
[2023-05-02] MEDS: LORATADINE 10 MG TABLET PO ×2 (09:12→20:21)
[2023-05-02] MEDS: PANTOPRAZOLE 40 MG TABLET PO (09:12)
[2023-05-02] MEDS: ALBUTEROL SULFATE NEB 2.5 MG/3 ML INH INHALATION ×3 (09:56→21:07)
[2023-05-02] MEDS: diphenhydrAMINE HCl INJ 50 MG/ML VIAL IV PUSH (14:12)
[2023-05-02] MEDS: KETOROLAC 30 MG/ML VIAL (*BKC) IV PUSH (14:12)
[2023-05-02] MEDS: PROCHLORPERAZINE EDISYLATE 10 MG/2 ML VIAL IV PUSH (14:21)
--- NOTE | 2023-05-02 14:29 | PC.NURSE ---
All care, medications and assessments performed by Gerda Calderon, Student Nurse/[facility] has been completed under direct supervision of [place] Guest Services Officer or Nursing Staff. Charting has been reviewed and agree with same. Any questions or concerns presented by patient and/or family has been relayed to appropriate staff.
[2023-05-03] VITALS (12 sets, daily range): BP systolic 107–132; BP diastolic 48–60; PULSE 78–99; RESP 14–20; TEMP 36.5–36.9; O2SAT 92–99
[2023-05-03] MEDS: DOXYCYCLINE 100 MG/NS 100 ML 100 MG/100 ML BAG IVPB ×2 (02:05→15:12)
[2023-05-03 06:13] LABS: Basophils Percent Auto 0.5 % (0.2-1.2); Eosinophils Absolute Auto 0.2 K/mm3 (0-0.3); Eosinophils Percent Auto 2.8 % (0-4.4); Hematocrit 33.4 % (37.0-47.0); Hemoglobin 10.4 g/dL (12.0-15.0); Immature Granulocyte Absolute 0.09 K/mm3 (0.00-0.031); Immature Granulocyte Percent A 1.1 % (0-0.5); Lymphocytes Absolute Auto 0.45 K/mm3 (0.9-3.2); Lymphocytes Percent Auto 5.3 % (18.3-44.2); Mean Corpuscular HGB Conc 31.1 g/dl (32-36); Mean Corpuscular Hemoglobin 29.7 pg (26-34); Mean Corpuscular Volume 95.4 fl (80-100); Mean Platelet Volume 9.9 fl (7.4-10.4); Monocytes Absolute Auto 0.5 K/mm3 (0.1-0.6); Monocytes Percent Auto 5.5 % (2.6-8.5); Neutrophils Absolute Auto 7.2 K/mm3 (1.3-6.7); Neutrophils Percent Auto 84.8 % (45.5-73.1); Platelet Count Result 332 k/mm3 (150-375); White Blood Count 8.5 K/mm3 (4.5-10.0)
[2023-05-03 06:28] LABS: Alanine Aminotransferase 19 U/L (6-35); Albumin Level 3.5 g/dL (3.5-5.1); Alkaline Phosphatase 130 U/L (38-126); Anion Gap 10 mmol/L (8-16); Aspartate Amino Transferase 24 U/L (14-36); Bilirubin,Total 0.7 mg/dL (0.2-1.3); Blood Urea Nitrogen 11 mg/dL (7-17); Calcium 8.4 mg/dL (8.4-10.2); Carbon Dioxide 22 mmol/L (22-30); Chloride 102 mmol/L (98-107); Estimated CRCL calculation 105 ml/min; Estimated Glomerular Filt Rate > 60; Glucose 105 mg/dL (65-110); Potassium 3.3 mmol/L (3.4-5.0); Sodium 134 mmol/L (137-145)
[2023-05-03] MEDS: ALBUTEROL SULFATE NEB 2.5 MG/3 ML INH INHALATION ×3 (08:11→20:22)
--- NOTE | 2023-05-03 08:23 | P.PNIM_ITS ---
Progress Note: A&P Assessment and Plan (1) Sepsis: Code(s): A41.9 - Sepsis, unspecified organism Status: Acute Assessment and Plan: 05/01/23: * SIRS Criteria: +temp of 38.4C, HR 113, RR 25. no evidence of organ failure. lactate WNL. * blood cultures sent, pending * aggressive fluid resuscitation not indicated. Patient is not hypotensive and lactate is within normal limits. Will continue with gentle fluid support, given 1 L in ED. LR 100 mL/hr x2L. Repeat lactate in AM. * continue to monitor 05/02/23: * see below, sepsis resolved (2) Pneumonia: Code(s): J18.9 - Pneumonia, unspecified organism Status: Acute Assessment and Plan: 05/01/23: * new oxygen requirement (2L NC), 90% on RA. continue supplementation. * CXR: airspace opacities in all right lung zones, worst in the mid and lower lung zones. There are mild airspace opacities in left lower lung zone. consistent with PNA. * tx initiated for CAP: doxycycline and ceftriaxone, continue. allergy to azithromycin. May need to escalated to Cefe/Vanco given her immunosuppression. Mild increase in leukocytosis since admission. Will correlate clinically. * sputum culture * MRSA screen pending * tyl/codeine PO PRN * TYL prn for fever or pain * Tessalon Perles p.r.n. for cough + guaifenesin/DM * monitor daily labs * Leukocytosis is downtrending. * She completed a course of Paxlovid when initially diagnosed. Since she is immunocompromised she is still testing positive for COVID. I spoke with the pharmacist and there are recent suggestions that those who are immunocompromised may need extended courses or repeat courses of remdesivir or Paxlovid. Will add on Remdesivir to her regimen. Okay to use with mild transaminitis, only contraindicated when liver enzymes are 10 x greater than the normal. 05/02/23: * Currently on 2 L nasal cannula, crackles noted to right lower lobe * Will repeat chest x-ray today * Continue Rocephin and doxycycline * Continue with Remdesivir * MRSA was negative * Blood cultures pending * WBC count 8.9 * Start albuterol treatments today * Continue tessalon perles and guaifenesin DM * PT and OT ordered 05/03/23: * Still on 2 L nasal cannula, incentive spirometer ordered for 10 times per hour * Chest x-ray shows marked improvement in her pneumonia * Continue with IV antibiotics for now due to poor intake. * Continue with remdesivir * Blood culture showing no growth day 3 * White blood cell count 8.5 * Continue with PT and OT (3) Elevated liver enzymes: Code(s): R74.8 - Abnormal levels of other serum enzymes Status: Acute Assessment and Plan: 05/01/23: * likely med related. currently on gilenya for MS, continued due to current condition. * monitor LFTs. Stable 04/30 and decreasing 05/01 * refer back to neuro for possible change in med regimen. 05/02/23: * no change to current treatment plan (4) Migraine: Qualifiers: Intractability: not intractable Migraine type: unspecified Status migrainosus presence: without status migrainosus Qualified Code(s): G43.909 - Migraine, unspecified, not intractable, without status migrainosus Code(s): G43.909 - Migraine, unspecified, not intractable, without status migrainosus Status: Acute Assessment and Plan: 05/01/23: * H/O migraine h/a. Typically takes Fingolimod. * prn home medication is not working * gave 1 x dose of sumatriptan but she vomited shortly after * Gave migraine IV cocktail of Toradol 30 mg, Benadryl 50 mg, and Compazi
--- NOTE | 2023-05-03 08:23 | PM.IMPN ---
Progress Note: A&P Assessment and Plan (1) Sepsis: Code(s): A41.9 - Sepsis, unspecified organism Status: Acute Assessment and Plan: 05/01/23: SIRS Criteria: +temp of 38.4C, HR 113, RR 25. no evidence of organ failure. lactate WNL. blood cultures sent, pending aggressive fluid resuscitation not indicated. Patient is not hypotensive and lactate is within normal limits. Will continue with gentle fluid support, given 1 L in ED. LR 100 mL/hr x2L. Repeat lactate in AM. continue to monitor 05/02/23: see below, sepsis resolved (2) Pneumonia: Code(s): J18.9 - Pneumonia, unspecified organism Status: Acute Assessment and Plan: 05/01/23: new oxygen requirement (2L NC), 90% on RA. continue supplementation. CXR: airspace opacities in all right lung zones, worst in the mid and lower lung zones. There are mild airspace opacities in left lower lung zone. consistent with PNA. tx initiated for CAP: doxycycline and ceftriaxone, continue. allergy to azithromycin. May need to escalated to Cefe/Vanco given her immunosuppression. Mild increase in leukocytosis since admission. Will correlate clinically. sputum culture MRSA screen pending tyl/codeine PO PRN TYL prn for fever or pain Tessalon Perles p.r.n. for cough + guaifenesin/DM monitor daily labs Leukocytosis is downtrending. She completed a course of Paxlovid when initially diagnosed. Since she is immunocompromised she is still testing positive for COVID. I spoke with the pharmacist and there are recent suggestions that those who are immunocompromised may need extended courses or repeat courses of remdesivir or Paxlovid. Will add on Remdesivir to her regimen. Okay to use with mild transaminitis, only contraindicated when liver enzymes are 10 x greater than the normal. 05/02/23: Currently on 2 L nasal cannula, crackles noted to right lower lobe Will repeat chest x-ray today Continue Rocephin and doxycycline Continue with Remdesivir MRSA was negative Blood cultures pending WBC count 8.9 Start albuterol treatments today Continue tessalon perles and guaifenesin DM PT and OT ordered 05/03/23: Still on 2 L nasal cannula, incentive spirometer ordered for 10 times per hour Chest x-ray shows marked improvement in her pneumonia Continue with IV antibiotics for now due to poor intake. Continue with remdesivir Blood culture showing no growth day 3 White blood cell count 8.5 Continue with PT and OT (3) Elevated liver enzymes: Code(s): R74.8 - Abnormal levels of other serum enzymes Status: Acute Assessment and Plan: 05/01/23: likely med related. currently on gilenya for MS, continued due to current condition. monitor LFTs. Stable 04/30 and decreasing 05/01 refer back to neuro for possible change in med regimen. 05/02/23: no change to current treatment plan (4) Migraine: Qualifiers: Intractability: not intractable Migraine type: unspecified Status migrainosus presence: without status migrainosus Qualified Code(s): G43.909 - Migraine, unspecified, not intractable, without status migrainosus Code(s): G43.909 - Migraine, unspecified, not intractable, without status migrainosus Status: Acute Assessment and Plan: 05/01/23: H/O migraine h/a. Typically takes Fingolimod. prn home medication is not working gave 1 x dose of sumatriptan but she vomited shortly after Gave migraine IV cocktail of Toradol 30 mg, Benadryl 50 mg, and Compazine 10 mg. Now sleeping. 05/02/23: C/O of headache again today, will give another Migraine cocktail today as it seemed to help her yesterday home medication still not helping 05/03/23: Patient states that her headache is much better today however not completely gone. I encourage patient to reach out if she starts having a really bad headache again and we can always put in for the migraine cocktail. Time Spent With Patient Time wi
[2023-05-03] MEDS: VENLAFAXINE HCL XR 75 MG CAP.ER.24H PO (09:18)
[2023-05-03] MEDS: oxyBUTYnin CHLORIDE XL 5 MG TAB.ER.24 10 MG PO (09:18)
[2023-05-03] MEDS: IRBESARTAN 150 MG TABLET 300 MG PO (09:18)
[2023-05-03] MEDS: VENLAFAXINE HCL XR 75 MG CAP.ER.24H 150 MG PO (09:18)
[2023-05-03] MEDS: LORATADINE 10 MG TABLET PO ×2 (09:18→20:35)
[2023-05-03] MEDS: hydroCHLOROthiazide 12.5 MG CAPSULE PO (09:19)
[2023-05-03] MEDS: guaiFENesin 600 MG/DEXTROMETHORPHAN 30 MG SR TAB 12 HR 1 TAB PO ×2 (09:19→20:35)
[2023-05-03] MEDS: estradioL 1 MG TABLET 2 MG PO (09:19)
[2023-05-03] MEDS: PANTOPRAZOLE 40 MG TABLET PO (09:19)
[2023-05-03] MEDS: modafiniL (*CRX) 200 MG TABLET PO (09:19)
[2023-05-03] MEDS: MONTELUKAST SODIUM 10 MG TABLET PO (09:19)
[2023-05-03] MEDS: DICLOFENAC SOD 75 MG TABLET.EC PO ×2 (09:19→17:31)
[2023-05-03] MEDS: POTASSIUM CHLORIDE 20 MEQ ER TABLET 40 MEQ PO (09:19)
[2023-05-03] MEDS: ENOXAPARIN 40 MG/0.4 ML SYRINGE SUB-Q (09:20)
[2023-05-03] MEDS: amLODIPine BESYLATE 5 MG TABLET 10 MG PO (09:25)
[2023-05-03] MEDS: REMDESIVIR 100 MG/NS 250 ML 100 MG/250 ML BAG 250 MG IVPB (09:25)
[2023-05-04] MEDS: DOXYCYCLINE 100 MG/NS 100 ML 100 MG/100 ML BAG IVPB (02:01)
[2023-05-04 03:34] VITALS: BP 115/52; PULSE 76; RESP 20; TEMP 36.8; O2SAT 94
[2023-05-04 05:29] LABS: Basophils Percent Auto 0.4 % (0.2-1.2); Eosinophils Absolute Auto 0.3 K/mm3 (0-0.3); Eosinophils Percent Auto 4.1 % (0-4.4); Hematocrit 33.6 % (37.0-47.0); Hemoglobin 10.6 g/dL (12.0-15.0); Immature Granulocyte Percent A 1.2 % (0-0.5); Lymphocytes Absolute Auto 0.72 K/mm3 (0.9-3.2); Lymphocytes Percent Auto 8.9 % (18.3-44.2); Mean Corpuscular HGB Conc 31.5 g/dl (32-36); Mean Corpuscular Hemoglobin 29.6 pg (26-34); Mean Corpuscular Volume 93.9 fl (80-100); Mean Platelet Volume 10.1 fl (7.4-10.4); Monocytes Absolute Auto 0.5 K/mm3 (0.1-0.6); Monocytes Percent Auto 6.2 % (2.6-8.5); Neutrophils Absolute Auto 6.4 K/mm3 (1.3-6.7); Neutrophils Percent Auto 79.2 % (45.5-73.1); Platelet Count Result 343 k/mm3 (150-375); Prothrombin Time 13.6 Seconds (11.1-14.7); Red Blood Count 3.58 M/mm3 (4.2-5.4); Red Cell Distribution Width 14.1 % (11.5-14.5); White Blood Count 8.1 K/mm3 (4.5-10.0)
[2023-05-04 05:38] LABS: Alanine Aminotransferase 17 U/L (6-35); Albumin Level 3.3 g/dL (3.5-5.1); Alkaline Phosphatase 125 U/L (38-126); Anion Gap 7 mmol/L (8-16); Aspartate Amino Transferase 25 U/L (14-36); Bilirubin,Total 0.5 mg/dL (0.2-1.3); Blood Urea Nitrogen 11 mg/dL (7-17); Calcium 8.4 mg/dL (8.4-10.2); Carbon Dioxide 24 mmol/L (22-30); Chloride 104 mmol/L (98-107); Estimated CRCL calculation 105 ml/min; Estimated Glomerular Filt Rate > 60; Glucose 105 mg/dL (65-110); Potassium 3.2 mmol/L (3.4-5.0); Sodium 135 mmol/L (137-145)
[2023-05-04] MEDS: ALBUTEROL SULFATE NEB 2.5 MG/3 ML INH INHALATION (07:49)
[2023-05-04 07:50] VITALS: PULSE 81; RESP 18; O2SAT 96
[2023-05-04 08:00] VITALS: PULSE 85; RESP 18; O2SAT 96
[2023-05-04 08:01] VITALS: PULSE 85; RESP 18
[2023-05-04 08:02] LABS: Glucose Point of Care 115 mg/dl (65-105)
[2023-05-04] MEDS: IRBESARTAN 150 MG TABLET 300 MG PO (09:39)
[2023-05-04] MEDS: PANTOPRAZOLE 40 MG TABLET PO (09:39)
[2023-05-04] MEDS: oxyBUTYnin CHLORIDE XL 5 MG TAB.ER.24 10 MG PO (09:39)
[2023-05-04] MEDS: DICLOFENAC SOD 75 MG TABLET.EC PO (09:39)
[2023-05-04] MEDS: POTASSIUM CHLORIDE 20 MEQ PACKET (FOR LIQUID) 40 MEQ PO (09:39)
[2023-05-04] MEDS: LORATADINE 10 MG TABLET PO (09:40)
[2023-05-04] MEDS: modafiniL (*CRX) 200 MG TABLET PO (09:40)
[2023-05-04] MEDS: estradioL 1 MG TABLET 2 MG PO (09:40)
[2023-05-04] MEDS: VENLAFAXINE HCL XR 75 MG CAP.ER.24H 150 MG PO (09:40)
[2023-05-04] MEDS: amLODIPine BESYLATE 5 MG TABLET 10 MG PO (09:40)
[2023-05-04] MEDS: MONTELUKAST SODIUM 10 MG TABLET PO (09:40)
[2023-05-04] MEDS: VENLAFAXINE HCL XR 75 MG CAP.ER.24H PO (09:40)
[2023-05-04] MEDS: REMDESIVIR 100 MG/NS 250 ML 100 MG/250 ML BAG 250 MG IVPB (09:41)
[2023-05-04] MEDS: ENOXAPARIN 40 MG/0.4 ML SYRINGE SUB-Q (09:42)
[2023-05-04] MEDS: guaiFENesin 600 MG/DEXTROMETHORPHAN 30 MG SR TAB 12 HR 1 TAB PO (09:42)
--- NOTE | 2023-05-04 10:07 | PCPTNOTE ---
Attempted to see patient for PT, however patient declined due to not feeling well.
[2023-05-04 14:00] VITALS: BP 132/64; PULSE 88; RESP 12; TEMP 37.2; O2SAT 95
--- NOTE | 2023-05-04 16:04 | PM.DS ---
DS: Admitting Diagnosis Discharge Date 05/04/23 Admitting Diagnosis pneumonia DS: Discharge Diagnosis Discharge Diagnosis (1) Sepsis: Code(s): A41.9 - Sepsis, unspecified organism Status: Acute (2) Pneumonia: Code(s): J18.9 - Pneumonia, unspecified organism Status: Acute (3) Elevated liver enzymes: Code(s): R74.8 - Abnormal levels of other serum enzymes Status: Acute (4) Migraine: Qualifiers: Migraine type: unspecified Status migrainosus presence: without status migrainosus Intractability: not intractable Qualified Code(s): G43.909 - Migraine, unspecified, not intractable, without status migrainosus Code(s): G43.909 - Migraine, unspecified, not intractable, without status migrainosus Status: Acute DS: Summary Hospital Course Hospital Course: This is a 58-year-old female with a past medical history of migraine, hypertension, hyperlipidemia and MS the presents to the ED on 04/29/2023 due to increasing shortness of breath, weakness and fatigue. She tested positive for COVID on 04/12 and after several days she started to feel better from this. She is noted to have 90% on room air on arrival to the ED was placed on 2 L nasal cannula. Chest x-ray showing airspace opacities in right lung zone consistent with pneumonia. she was found have a white blood cell count of 10.9. She was started on doxycycline and Rocephin. She has allergy to azithromycin. MRSA screen negative. Blood cultures no growth to date. White blood cell count trended down within normal range she was able to be weaned off of oxygen. Was also given DuoNebs scheduled. Patient's symptoms improved with treatment. Patient received full antibiotic treatment while in the hospital. labs and vital signs are stable she is medically cleared for discharge at this time. Time Spent with Patient Time attestation: Total time spent providing and/or coordinating discharge services: Exam Narrative: GENERAL: Comfortable, no acute distress HENMT: moist mucous membranes EYES: EOM intact b/l NECK: no lymphadenopathy RESPIRATORY: clear to auscultation CARDIO: RRR GI: soft, nontender, bowel sounds present SKIN: no rashes EXTREMITIES: no edema, redness or tenderness DS: Data Data Completed and Pending Labs on day of discharge: Labs from last 24 hours 05/04/23 05/04/23 07:59 04:57 WBC 8.1 RBC 3.58 L Hgb 10.6 L Hct 33.6 L MCV 93.9 MCH 29.6 MCHC 31.5 L RDW 14.1 Plt Count 343 MPV 10.1 Immature Gran % (Auto) 1.2 H Neut % (Auto) 79.2 H Lymph % (Auto) 8.9 L Cooper % (Auto) 6.2 Eos % (Auto) 4.1 Baso % (Auto) 0.4 Lymph # (Auto) 0.72 L Cooper # (Auto) 0.5 Eos # (Auto) 0.3 Baso # (Auto) 0.0 Abs Immat Gran (auto) 0.10 H Absolute Neuts (auto) 6.4 Absolute Nucleated RBC 0.0 Nucleated RBC % 0.0 PT 13.6 INR 1.0 Sodium 135 L Potassium 3.2 L Chloride 104 Carbon Dioxide 24 Anion Gap 7 L BUN 11 Creatinine 0.60 L Estim Creat Clear Calc 105 Estimated GFR > 60 Glucose 105 POC Capillary Glucose 115 H Calcium 8.4 Total Bilirubin 0.5 Direct Bilirubin 0.0 AST 25 ALT 17 Alkaline Phosphatase 125 Total Protein 6.0 L Albumin 3.3 L Preliminary micro results at discharge 04/29/23 13:43 Blood Culture - Preliminary Blood 04/29/23 13:43 Blood Culture - Preliminary Blood Discharge Plan Discharge Attending physician on discharge: Lamont Hall Discharging Clinician: Britney Eaton Patient Disposition: Home, Self-Care Activity: as tolerated Diet: regular Discharge Instructions: Discharge disposition: Take medications as prescribed Monitor blood pressures Avoid social areas, you wear a mask when in social settings Encouraged to continue with yearly vaccinations Return to the emergency department if he developed sudden shortness of breath, chest pain, nausea, vomiting, upset sto
== END 2023-05-04 18:00 | disposition home or self-care (01) | DRG 871 ==
LOC: ANHED 12:29 → ANH2MED 15:42
PROVIDERS: Emergency Medicine; Nurse Practitioner Acute Care; Student in an Organized Health Care Education/Training Program; Admitting Provider Student in an Organized Health Care Education/Training Program; Emergency Provider Emergency Medicine; PCP Emergency Medicine; Visit Provider Internal Medicine Critical Care Medicine
DX: J18.9 Pneumonia, unspecified organism; A41.9 Sepsis, unspecified organism; U07.1 COVID-19; Z68.41 Body mass index [BMI] 40.0-44.9, adult; E78.5 Hyperlipidemia, unspecified; E66.9 Obesity, unspecified; F41.9 Anxiety disorder, unspecified; G43.909 Migraine, unspecified, not intractable, without status migrainosus; G35 Multiple sclerosis; I10 Essential (primary) hypertension; K21.9 Gastro-esophageal reflux disease without esophagitis; R74.8 Abnormal levels of other serum enzymes; Z90.49 Acquired absence of other specified parts of digestive tract; Z90.710 Acquired absence of both cervix and uterus
CPT/HCPCS: 36415; 71045; 71046; 80053; 82248; 82948; 83605; 83735; 84100; 84145; 85025; 85027; 85610; 87040; 87081; 87637; 94640; 96365; 97110; 97161; 97165; 97530; 99285; A9270; J0248; J0696; J0780; J1200; J1650; J1885; J2405; J7030; J7040; J7120

== ENCOUNTER 2023-06-10 13:00 | Outpatient (CLI) | payer MEDICARE, OTHER, SELFPAY ==
--- NOTE | ~2023-06-10 | MM_ITS ---
EXAMINATION: MM diagnostic aranza RT w j carlos HISTORY: Follow-up right breast calcifications TECHNIQUE: Additional 3-D tomosynthesis images of the right breast were performed and synthetic 2-D i mages were generated. CAD analysis was submitted and interpreted. COMPARISON: Comparison to multiple prior studies sequentially, with oldest reviewed study dated 10/21. BREAST PARENCHYMAL COMPOSITION: Breast composed of scattered areas of fibroglandular density FINDINGS: There are clustered calcifications in the lower inner quadrant of the right breast which ar e slightly increased in number, although appear to layer on the spot mediolateral view suggesting crystal ign fibrocystic disease. No suspicious masses or architectural distortion. IMPRESSION: 1. Probable benign right breast calcifications. 2. Recommend 6 month follow-up diagnostic right mammogram BI-RADS category 3, probably benign findings. Reviewed, dictated and finalized at location A. [employer]
== END 2023-06-10 13:01 | disposition home or self-care (01) ==
LOC: ANHIMG 13:01
PROVIDERS: PCP Emergency Medicine; Visit Provider Registered Nurse
DX: R92.1 Mammographic calcification found on diagnostic imaging of breast (principal)
CPT/HCPCS: 77061; 77065; G0279

== ENCOUNTER 2023-11-09 15:09 | Outpatient (CLI) | payer MEDICARE, OTHER, SELFPAY ==
[2023-11-09 19:17] LABS: Basophils Percent Auto 0.4 % (0.2-1.2); Eosinophils Absolute Auto 0.2 K/mm3 (0-0.3); Eosinophils Percent Auto 1.9 % (0-4.4); Hematocrit 36.6 % (37.0-47.0); Hemoglobin 11.7 g/dL (12.0-15.0); Immature Granulocyte Absolute 0.07 K/mm3 (0.00-0.031); Immature Granulocyte Percent A 0.9 % (0-0.5); Lymphocytes Absolute Auto 0.49 K/mm3 (0.9-3.2); Lymphocytes Percent Auto 6.2 % (18.3-44.2); Mean Corpuscular Volume 90.8 fl (80-100); Mean Platelet Volume 10.6 fl (7.4-10.4); Monocytes Absolute Auto 0.4 K/mm3 (0.1-0.6); Monocytes Percent Auto 5.6 % (2.6-8.5); Neutrophils Absolute Auto 6.7 K/mm3 (1.3-6.7); Platelet Count Result 394 k/mm3 (150-375); Red Blood Count 4.03 M/mm3 (4.2-5.4); Red Cell Distribution Width 14.3 % (11.5-14.5); White Blood Count 7.9 K/mm3 (4.5-10.0)
[2023-11-09 19:57] LABS: Alanine Aminotransferase 13 U/L (6-35); Albumin Level 4.2 g/dL (3.5-5.1); Alkaline Phosphatase 125 U/L (38-126); Anion Gap 9 mmol/L (4-12); Aspartate Amino Transferase 21 U/L (14-36); Bilirubin,Total 0.4 mg/dL (0.2-1.3); Blood Urea Nitrogen 22 mg/dL (7-17); Calcium 9.5 mg/dL (8.4-10.2); Carbon Dioxide 26 mmol/L (22-30); Chloride 103 mmol/L (98-107); Cholesterol 231 mg/dL (0-200); Estimated Glomerular Filt Rate 57; Glucose 92 mg/dL (65-110); HDL Direct 63 mg/dL; Potassium 3.8 mmol/L (3.4-5.0); Sodium 138 mmol/L (137-145); Triglycerides 271 mg/dL (<150)
[2023-11-09 20:08] LABS: LDL Cholesterol Direct 113 mg/dL
[2023-11-09 21:33] LABS: Hemoglobin A1C 5.2 % (<5.7)
== END 2023-11-09 15:10 | disposition home or self-care (01) ==
LOC: ANHGOSHLAB 15:11
PROVIDERS: PCP Emergency Medicine; Visit Provider Emergency Medicine
DX: E78.00 Pure hypercholesterolemia, unspecified (principal); I10 Essential (primary) hypertension; R73.01 Impaired fasting glucose; D64.9 Anemia, unspecified; R74.8 Abnormal levels of other serum enzymes; E66.01 Morbid (severe) obesity due to excess calories; G43.909 Migraine, unspecified, not intractable, without status migrainosus
CPT/HCPCS: 36415; 80053; 80061; 83036; 84443; 85025

== ENCOUNTER 2023-12-01 14:34 | Outpatient (CLI) | payer MEDICARE, OTHER, SELFPAY ==
[2023-12-01 14:59] LABS: Basophils Percent Auto 0.2 % (0.2-1.2); Eosinophils Absolute Auto 0.2 K/mm3 (0-0.3); Eosinophils Percent Auto 1.9 % (0-4.4); Hematocrit 35.5 % (37.0-47.0); Hemoglobin 11.5 g/dL (12.0-15.0); Immature Granulocyte Absolute 0.03 K/mm3 (0.00-0.031); Immature Granulocyte Percent A 0.4 % (0-0.5); Lymphocytes Absolute Auto 0.52 K/mm3 (0.9-3.2); Lymphocytes Percent Auto 6.4 % (18.3-44.2); Mean Corpuscular HGB Conc 32.4 g/dl (32-36); Mean Corpuscular Hemoglobin 29.3 pg (26-34); Mean Corpuscular Volume 90.6 fl (80-100); Mean Platelet Volume 9.7 fl (7.4-10.4); Monocytes Absolute Auto 0.4 K/mm3 (0.1-0.6); Monocytes Percent Auto 5.3 % (2.6-8.5); Neutrophils Percent Auto 85.8 % (45.5-73.1); Platelet Count Result 387 k/mm3 (150-375); Red Blood Count 3.92 M/mm3 (4.2-5.4); Red Cell Distribution Width 13.8 % (11.5-14.5); White Blood Count 8.1 K/mm3 (4.5-10.0)
[2023-12-01 21:27] LABS: Alanine Aminotransferase 38 U/L (6-35); Albumin Level 4.3 g/dL (3.5-5.1); Alkaline Phosphatase 179 U/L (38-126); Anion Gap 6 mmol/L (4-12); Aspartate Amino Transferase 117 U/L (14-36); Bilirubin,Total 0.6 mg/dL (0.2-1.3); Blood Urea Nitrogen 25 mg/dL (7-17); Calcium 9.3 mg/dL (8.4-10.2); Carbon Dioxide 28 mmol/L (22-30); Chloride 104 mmol/L (98-107); Estimated Glomerular Filt Rate 51; Glucose 87 mg/dL (65-110); Lactate Dehydrogenase 255 U/L (120-246); Potassium 3.2 mmol/L (3.4-5.0); Sodium 138 mmol/L (137-145)
[2023-12-01 21:37] LABS: Iron 37 ug/dL (37-170)
[2023-12-01 21:49] LABS: Percent Iron Saturation 11 % (20-50)
[2023-12-01 22:41] LABS: Folic Acid > 20.0 ng/mL (2.76->20)
[2023-12-02 16:59] LABS: Haptoglobin 229 mg/dL (43-212)
[2023-12-06 10:12] LABS: Methylmalonic Acid 188 nmol/L (87-318)
[2023-12-09 13:13] LABS: Soluble Transferrin Receptor 1.15 mg/L (0.76-1.76)
== END 2023-12-01 14:35 | disposition home or self-care (01) ==
LOC: ANHLAB 14:37
PROVIDERS: Nurse Practitioner Family; PCP Emergency Medicine; Visit Provider Internal Medicine Hematology & Oncology
DX: D64.9 Anemia, unspecified (principal)
CPT/HCPCS: 36415; 80053; 82607; 82728; 82746; 83010; 83540; 83550; 83615; 83921; 84238; 85025; 86880

== ENCOUNTER 2024-02-06 13:27 | Outpatient (CLI) | payer MEDICARE, OTHER, SELFPAY ==
--- NOTE | ~2024-02-06 | MM_ITS ---
EXAMINATION: MM diagnostic aranza BI w j carlos HISTORY: Follow-up right breast calcifications TECHNIQUE: Additional 3-D tomosynthesis images of the breasts were performed and synthetic 2-D images were generated. CAD analysis was submitted and interpreted. COMPARISON: Comparison to multiple prior studies sequentially, with oldest reviewed study dated 03/27. BREAST PARENCHYMAL COMPOSITION: Not dense: There are scattered areas of fibroglandular density. FINDINGS: The left breast is stable without evidence for malignancy. There is a cluster of punctate c alcifications in the lower central aspect of the right breast which are unchanged from prior examinat ion. There are additional benign-appearing right breast calcifications. No suspicious masses or archi tectural distortion. IMPRESSION: 1. Stable clustered indeterminate right breast calcifications in the lower central right breast, midd le third, likely benign. 2. Recommend 6 month follow-up diagnostic right mammogram. BI-RADS category 3, probably benign findings. Reviewed, dictated and finalized at location B. IMPRESSION: 1. Stable clustered indeterminate right breast calcifications in the lower cent ral right breast, middle third, likely benign. 2. Recommend 6 month follow-up diagnostic right mammogram. BI-RADS category 3, probably benign findings.
== END 2024-02-06 13:28 | disposition home or self-care (01) ==
PROVIDERS: PCP Emergency Medicine; Visit Provider Obstetrics & Gynecology
DX: R92.8 Other abnormal and inconclusive findings on diagnostic imaging of breast (principal)
CPT/HCPCS: 77062; 77066; G0279

== ENCOUNTER 2024-09-27 14:13 | Outpatient (CLI) | payer MEDICARE, OTHER, SELFPAY ==
--- NOTE | ~2024-09-27 | MM_ITS ---
EXAMINATION: MM diagnostic aranza RT w j carlos HISTORY: Follow-up right breast calcifications TECHNIQUE: Additional 3-D tomosynthesis images of the right breast were performed and synthetic 2-D i mages were generated. CAD analysis was submitted and interpreted. COMPARISON: Comparison to multiple prior studies sequentially, with oldest reviewed study dated 03/27. BREAST PARENCHYMAL COMPOSITION: Not dense: There are scattered areas of fibroglandular density. FINDINGS: Scattered punctate right breast calcifications are unchanged from prior examination and lik liza benign. No suspicious masses or architectural distortion. IMPRESSION: 1. Stable likely benign right breast calcifications. 2. Recommend 6 month follow-up diagnostic bilateral mammogram. BI-RADS category 3, probably benign findings. Reviewed, dictated and finalized at location A.
--- OUTSIDE RECORDS SUMMARY | 2024-09-27 14:36 | XMS_ITS | Clinical Summary ---
Author Organization [facility] Address [address] [place] [address] Phone Care Team Providers Care Embroidery Finisher Name Role Phone Leo Street MD Primary Care Provider [phone] Allergies Active Allergy Reactions Criticality Noted Date Comments Sulfamethoxazole-Trimethoprim Unknown 2015 Medications Cetirizine (ZYRTEC) 10 mg Oral Cap Take by mouth daily. Active venlafaxine (EFFEXOR XR) 150 mg Extended Release 24 hour capsule Take 225 mg by mouth daily. Active amLODIPine (NORVASC) 10 mg tablet Take 10 mg by mouth daily. Active ASCORBIC ACID/VITAMIN E (CRANBERRY CONCENTRATE ORAL) Take by mouth. Activ e multivitamin (DAILY-TROY) tabletIndication s:Vitamin D and Calcium Take 1 Tablet by mouth daily. Active estradiol (ESTRACE) 0.5 mg tablet Take 2 mg by mouth daily. 5 6 Active fingolimod (GILENYA) 0.5 mg CapsuleIndicatio ns:Multiple sclerosis (CMS/HCC) Take 1 Capsule (0.5 mg) by mouth daily. 30 Capsule 11 7 Active Calcium Carbonate-Vit D3-Min 600 mg calcium- 200 unit Tablet Take 5,000 Int'l Units/kg by mouth 3 times daily. Active diclofenac sodium (VOLTAREN) 75 mg Tablet, Delayed Release (E.C.) Take 75 mg by mouth 2 times daily. Active irbesartan-hydro CHLOROthiazide (AVALIDE) 300-12.5 mg tablet Take 1 Tablet by mouth daily. 2 Active fluticasone propionate (FLONASE) 50 mcg/spray [place], Suspension nasal inhaler Administer 1 [place] in each nostril daily. Active pantoprazole (PROTONIX) 40 mg Tablet, Delayed Release (E.C.) Take 40 mg by mouth daily. 2 Active pregabalin (LYRICA) 150 mg Capsule Take 150 mg by mouth every 12 hours. 4 Active VITAMIN B COMPLEX ORAL Take 1 Capsule by mouth daily. Active montelukast (SINGULAIR) 10 mg tablet Take 10 mg by mouth daily at bedtime. Active BUTALBITAL-ASPIR IN-CAFFEINE ORAL Take by mouth. Active modafiniL (PROVIGIL) 200 mg Tablet Take 200 mg by mouth 2 times daily. 4 Active Active Problems Patient Care Coordination No te Formatting of this note migh t be different from the original. Cardiology-Dr. 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 Copaxone: 4806-6406 2. Rebif: 4256-0204 Injection fatigue. 3. Tysabri: 05/2009-05/2011. Due to cost. 4. Rebif: 06/2011-08/2011. 5. Gilenya 10/20/2012-Present Encounters Date Type Department Care Team Description 09/12/2024 External Device Data ST[facility] ABSTRACTION Provider, Abstract 09/04/2024 External Device Data ST[facility] ABSTRACTION Provider, Abstract 09/04/2024 External Device Data [facility] ABSTRACTION Provider, Abstract 09/01/2024 External Device Data [facility] ABSTRACTION Provider, Abstract 08/31/2024 External Device Data [facility] ABSTRACTION Provider, Abstract 08/28/2024 External Device Data [facility] ABSTRACTION Provider, Abstract 08/14/2024 External Device Data [facility] ABSTRACTION Provider, Abstract 07/18/2024 External Device Data ST[facility] ABSTRACTION Provider, Abstract 07/17/2024 External Device Data ST[facility] ABSTRACTION Provider, Abstract 07/03/2024 External Device Data ST[facility] ABSTRACTION Provider, Abstract from Last 3 Months Family History Medical History Relation Name Comments No Known Problems Child Heart Attack Father Hypertension Father Diabetes Mother Heart Disease Mother Hypertension Mother Lung Cancer Mother Alcohol abuse Sister Relation Name Status Comments Child Alive Father Mother Sister Social History Tobacco Use Types Packs/Day Years Used Date Smoking Tobacco: Never Smokeless Tobacco: Never Alcohol Use Standard Drinks/Week Comments Not Currently 0 (1 standard drink = 0.6 oz pur e alcohol) Socially before Comments No Sex and Gender Information Value Date Recorded Sex Assigned at Not on file Legal Sex Female 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 Gender Identity Not on file Sexual Orientation Not on file Occupation Industry Job Start Date Job End Date Not on file Not on file Not on file Not on file Last Filed Vital Signs Vital Sign Reading Time Taken Comments Blood Pressure 132/77 12/01/2023 1:54 PM CDT Pulse 108 12/01/2023 1:54 PM CDT Temperature 36.7 C (98.1 F) 12/01/2023 1:54 PM CDT Respiratory Rate 15 12/01/2023 1:54 PM CDT Oxygen Saturation 96% 12/01/2023 1:54 PM CDT Inhaled Oxygen Concentration - - Weight 108.1 kg (238 lb 6.4 oz) 12/01/2023 1:54 PM CDT Height 165.1 cm (5' 5 ) 12/01/2023 1:54 PM CDT Body Mass Index 39.67 12/01/2023 1:54 PM CDT Plan of Treatment Health Maintenance Due Date Last Done Comments Pre-Diabetes and Diabetes Screening 1966 HEPATITIS B VACCINES (1 of 3 - 19+ 3-dose series) 1985 HPV/Cotest (21-29) 1987 PAP SMEAR 1987 CERVICAL CANCER SCREENING 1996 HPV/Cotest (30-65) 1996 PAP SMEAR 1996 BREAST CANCER SCREENING 2006 COLORECTAL SCREENING 2011 Colorectal Cancer Screening 2011 FIT-DNA Q 3 years 2011 FIT/FOBT Q 1 year 2011 Flex Sig/CT Colonography Q 5 years 2011 INFLUENZA VACCINE (#1) 2024 , 03/17/2021, 03/16/2020, Additional history exists DTAP/TDAP/TD VACCINES (3 - Td or Tdap) 11/27/2031 11/26/2021, 03/20/2021 ZOSTER VACCINE Completed 09/27/2021, 07/28/2021 PNEUMOCOCCAL VACCINE 0-49 YEARS Aged Out No longer eligible based on patient's age to complete this topic Medical Devices Implanted Type Area Director Of Cloud Services Device Identifier Shelf Expiration Date Model / Serial / Lot Sealant Floseal 10ml [id number] - [id number] Implanted:Qty : 1 on 03/08/2019 by Mayte Short MD at [facility] Sealant N/A: Spine Lumbar FUENTES- BIOSCIENCE 12/14/2019 [id number] / / [id number] N[place]ield 1.6cm Allograft Implanted:Qty : 1 on 03/08/2019 by Mayte Short MD at [facility] Tissue N/A: Spine Lumbar ORGANOGENESIS 11/25/2023 [id number] / [id number] / Insurance RX OPT[employer] RX Member Subscriber Plan / Payer (Ef fective 2019-Present) Name:Abran Antony Relation to Subscriber:Self Name:Abran Antony Subscriber ID:Not on file Payer ID:Not on file Group ID:[id number] Type:RX Commercial Address: [address] MEDICARE PART A AND B MEDICARE PART A AND B Advance Directives For more information, please contact: [phone] * Full Code (Latest Code Status on File) Date Activated Date Inactivated Comments 03/08/2019 8:52 AM 03/09/2019 12:16 PM Care Teams Embroidery Finisher Relationship Specialty Start Date End Date Leo Street MD [address] [place] [address] PCP - General Family Practice 12/01/23
--- OUTSIDE RECORDS SUMMARY | 2024-09-27 14:36 | XMS_ITS | Clinical Summary ---
Author Organization [facility] Address [address] [place] [address] Care Team Providers Care Chief Librarian Branch Or Department Name Role Phone Leo Street MD Primary Care Provider [phone] Allergies Active Allergy Reactions Criticality Noted Date Comments Sulfamethoxazole-Trimethoprim Hives Medium 2015 Medications amLODIPine (NORVASC) 10 mg tablet 8 Active montelukast (SINGULAIR) 10 mg tablet 8 Active venlafaxine XR (EFFEXOR-XR) 150 mg 24 hr capsule 8 Active calcium carbonate-vit D3-min 600 mg calcium- 200 unit tablet Take by mouth. Act nimco b complex vitamins capsule Take 1 capsule by mouth daily Active cranberry 400 mg capsule Take by mouth. Acti ve butalbital-aspi rin-caffeine (FIORINAL) 50-325-40 mg capsule TAKE 1 CAPSULE BY MOUTH EVERY 4 HOURS 0 Active fluticasone propionate (FLONASE) 50 mcg/actuation nasal spray Administer 1 spray into each nostril daily Active irbesartan-hydr oCHLOROthiazide (AVALIDE) 300-12.5 mg per tablet Take 1 tablet by mouth daily [address] (PROTONIX) 40 mg EC tablet 2 Active venlafaxine XR (EFFEXOR-XR) 75 mg 24 hr capsule Take by mouth daily 3 Active estradioL (ESTRACE) 2 mg tablet 3 Active pregabalin (LYRICA) 150 mg capsuleIndicati ons:Multiple sclerosis (HCC) TAKE 1 CAPSULE(150 MG) BY MOUTH DAILY 30 capsule 5 4 Active Zeposia 0.92 mg capsule Take 0.92 mg by mouth daily 30 capsule 5 4 Active modafiniL (PROVIGIL) 200 mg tablet Take 1 tablet (200 mg total) by mouth 2 (two) times a day 60 tablet 5 4 Active Gemtesa 75 mg tabletIndicatio ns:Multiple sclerosis (HCC) Take 75 mg by mouth daily 30 tablet 5 4 Active Ponvory 20 mg tabletIndicatio ns:Multiple sclerosis (HCC) Take 20 mg by mouth daily 30 tablet 5 4 Active Ponvory 14-Day Starter Pack 2 mg (2) - 10 mg (3) tablets,dose packIndications :Multiple sclerosis (HCC) Take 1 tablet daily, following titration instruction. 14 tablet 4 Active Active Problems Problem Noted Date Diagnosed Date Alternating constipation and diarrhea 05/05/2024 Psychosocial stressors 05/05/2024 Cognitive dysfunction accompanying multiple scle rosis 06/24/2019 Daytime hypersomnolence 06/24/2019 Chronic fatigue 06/24/2019 Neurogenic dysfunction of the urinary bladder Leg pain, bilateral 05/13/2018 Multiple sclerosis (CMS/HCC) 10/27/2017 Overview (05/05/2024): MS Medication History: RRMS Symptom onset and diagnosis:1992 1. Copaxone: 3421-5234: clinical breakthrough disease 2. Rebif: 6688-8631 Injection fatigue. 3. Tysabri: 05/2009-05/2011. Due to cost. 4. Rebif: 06/2011-08/2011 5. Gilenya 10/20/2012-2022 6. fingolimod: 5258-0796 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 High risk medication use 10/27/2017 Weakness of both hands 10/27/2017 Migraine Immunizations Immunization Administration Dates Next Due Flucelvax Influenza Quad 03/23/2019 Influenza, Quadrivalent, Rec ombinant, Egg Free, Preservative Free, Intramuscular 03/26/2022 Influenza, Quadrivalent, Spl it, Preservative Free, Intramuscular 03/17/2021,03/16/2020,02/24/2018 Tdap 11/26/2021,03/20/2021 ZOSTER Recombinant 09/27/2021,07/28/2021 Surgical History Surgery Date Site/Laterality Comments SPINE SURGERY GALLBLADDER SURGERY HYSTERECTOMY TONSILLECTOMY Medical History Medical History Date Comments MS (multiple sclerosis) (HCC) Migraine Family History Medical History Relation Name Comments Migraines Father Relation Name Status Comments Father Social History Tobacco Use Types Packs/Day Years Used Date Smoking Tobacco: Never Smokeless Tobacco: Never Tobacco Cessation:Counseling Given: Not Answered Alcohol Use Standard Drinks/Week Comments Yes 0 (1 standard drink = 0.6 oz pur e alcohol) rare Comments No Sex and Gender Information Value Date Recorded Sex Assigned at Not on file Legal Sex Female 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 Gender Identity Not on file Sexual Orientation Not on file Obstetrics History Last Filed Vital Signs Vital Sign Reading Time Taken Comments Blood Pressure 122/88 05/03/2024 2:06 PM SHADOW GRAPH WEIGHT OPERATOR Pulse 117 05/03/2024 2:06 PM SHADOW GRAPH WEIGHT OPERATOR Temperature 36.4 C (97.5 F) 05/03/2024 2:06 PM SHADOW GRAPH WEIGHT OPERATOR Respiratory Rate 16 02/10/2021 2:46 PM CDT Oxygen Saturation 97% 05/03/2024 2:06 PM SHADOW GRAPH WEIGHT OPERATOR Inhaled Oxygen Concentration - - Weight 107.5 kg (237 lb) 05/03/2024 2:06 PM SHADOW GRAPH WEIGHT OPERATOR Height 162.6 cm (5' 4 ) 05/03/2024 2:06 PM SHADOW GRAPH WEIGHT OPERATOR Body Mass Index 40.68 05/03/2024 2:06 PM SHADOW GRAPH WEIGHT OPERATOR Plan of Treatment Health Maintenance Due Date Last Done Comments Breast Cancer Screening-Mammogram 1966 Colon Cancer Screening-Colonoscopy 1966 Depression Screening 1966 Hepatitis C Screening 1966 Hepatitis B Screening 1984 Regular Well Visit/Exam 18-64 1984 Covid-19 Vaccine ( season) 2024 04/07/2022, 11/26/2021, 07/27/2021, Additional history exists Influenza Vaccine (Season Ended) 2025 03/26/2022, 03/17/2021, 03/16/2020, Additional history exists DTaP/Tdap/Td Vaccine (3 - Td or Tdap) 11/27/2031 11/26/2021, 03/20/2021 Zoster Vaccine Completed 09/27/2021, 07/28/2021 Pneumococcal vaccine <65 Aged Out No longer eligible based on patient's age to complete this topic Medical Devices Implanted Type Area Certified Hearing Instrument Dispenser Device Identifier Shelf Expiration Date Model / Serial / Lot Other - See Comments-2021 Implanted:02/2022 (Quantity not on file) Other - see comments Right: [employer] Insurance MEDICARE AETNA EXCHANGE [id number] [place] [facility] CHOICE PLUS [facility] CHOICE PLUS MEDICARE MEDICARE AETNA [facility] HMO/POS Care Teams Chief Librarian Branch Or Department Relationship Specialty Start Date End Date Leo Street MD PCP - General Family Medicine 11/04/22
--- OUTSIDE RECORDS SUMMARY | 2024-09-27 14:36 | XMS_ITS | Encounter Summary ---
Author Organization [facility] Healthcare Address [address] [place] [address] Care Team Providers Care Blueprint Blocker Name Role Phone Roxy Arnold MD Primary Care Provider [phone] MD Primary Care Provider [phone] Encounter Details Date Type Department Care Team (Late st Contact Info) Description 12/25/2019 Telephone [facility] [address] [place] [address] [place], [place] Social History Tobacco Use Types Packs/Day Years Used Date Smoking Tobacco: Never Smokeless Tobacco: Never Alcohol Use Standard Drinks/Week Comments Yes 0 (1 standard drink = 0.6 oz pur e alcohol) rare Comments Unknown Sex and Gender Information Value Date Recorded Sex Assigned at Not on file Legal 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
--- OUTSIDE RECORDS SUMMARY | 2024-09-27 14:36 | XMS_ITS | Clinical Summary ---
Author Organization [facility] Address [address] [place] [address] Care Team Providers Care Supply Chain Procurement Manager Name Role Phone Unavailable Primary Care Provider Unavailabl e Social History Tobacco Use Types Packs/Day Years Used Date Smoking Tobacco: Never Assessed Comments Unknown Sex and Gender Information Value Date Recorded Sex Assigned at Not on file Legal Sex Female 4:31 PM CDT Gender Identity Not on file Sexual Orientation Not on file Plan of Treatment Health Maintenance Due Date Last Done Comments Cervical Cancer Screening Pa p Smear (Age 30 to 64) Every 3 Years 1966 Colorectal Cancer Screening Colonoscopy (10 Years) 1966 Annual Physical 1969 Hepatitis C 1984 DTaP, Tdap and Td Vaccines ( 1 - Tdap) 1985 Hepatitis B Vaccines (1 of 3 - 19+ 3-dose series) 1985 Cervical Cancer Screening Pa p with HPV Testing (Age 30 to 64) Every 5 Years 1996 Cervical Cancer Screening with HPV 1996 Mammogram Screening 2006 Zoster Vaccines (1 of 2) 2016 COVID-19 Vaccine (2023-2 5 season) 2024 Influenza Adult (#1) 2024 Meningococcal B Vaccine Aged Out No l onger eligible based on patient's age to complete this topic Meningococcal Vaccine Aged Out No garland ubaldo eligible based on patient's age to complete this topic Pneumococcal Vaccine: Pediat rics (0 to 5 Years) and At-Risk Patients (6 to 64 Years) Aged Out No longer eligible b ased on patient's age to complete this topic RSV Immunizations Under 20 Months Aged Out No longer eligible based on patient's age to complete this topic
--- OUTSIDE RECORDS SUMMARY | 2024-09-27 14:36 | XMS_ITS | Referral Summary ---
Author Organization [facility] Address [address] [place] [address] Care Team Providers Care Pharmacy Resource Tech Name Role Phone Leo Street MD Primary Care Provider [phone] Allergies Active Allergy Reactions Criticality Noted Date [...] RRMS Symptom onset and diagnosis:1992 1. Copaxone: 1827-6126: clinical breakthrough disease 2. Rebif: 8297-2541 Injection fatigue. 3. Tysabri: 05/2009-05/2011. Due to cost. 4. Rebif: 06/2011-08/2011 5. Gilenya 10/20/2012-2022 6. fingolimod: 4908-4401 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 High risk medication use 10/27/2017 Weakness of both hands 10/27/2017 Migraine Immunizations Immunization Administration Dates Next Due Flucelvax Influenza Quad 03/23/2019 Influenza, Quadrivalent, Rec ombinant, Egg Free, Preservative Free, Intramuscular 03/26/2022 Influenza, Quadrivalent, Spl it, Preservative Free, Intramuscular 03/17/2021,03/16/2020,02/24/2018 Tdap 11/26/2021,03/20/2021 ZOSTER Recombinant 09/27/2021,07/28/2021 Social History Tobacco Use Types Packs/Day Years Used Date Smoking Tobacco: Never Smokeless Tobacco: Never Tobacco Cessation:Counseling Given: Not Answered Alcohol Use Standard Drinks/Week Comments Yes 0 (1 standard drink = 0.6 oz pur e alcohol) rare Comments No Sex and Gender Information Value Date Recorded Sex Assigned at Not on file Legal Sex Female 6:47 PM DESKTOP ARCHITECT Gender Identity Not on file Sexual Orientation Not on file Last Filed Vital Signs Vital Sign Reading Time Taken Comments Blood Pressure 122/88 05/03/2024 2:06 PM DESKTOP ARCHITECT Pulse 117 05/03/2024 2:06 PM DESKTOP ARCHITECT Temperature 36.4 C (97.5 F) 05/03/2024 2:06 PM DESKTOP ARCHITECT Respiratory Rate 16 02/10/2021 2:46 PM CDT Oxygen Saturation 97% 05/03/2024 2:06 PM DESKTOP ARCHITECT Inhaled Oxygen Concentration - - Weight 107.5 kg (237 lb) 05/03/2024 2:06 PM DESKTOP ARCHITECT Height 162.6 cm (5' 4 ) 05/03/2024 2:06 PM DESKTOP ARCHITECT Body Mass Index 40.68 05/03/2024 2:06 PM DESKTOP ARCHITECT Plan of Treatment Not on file Medical Devices Implanted Type Area Uniform Patrol Police Officer Device Identifier Shelf Expiration Date Model / Serial / Lot Other - See Comments-2021 Implanted:02/2022 (Quantity not on file) Other - see comments Right: [employer] Insurance MEDICARE AETNA EXCHANGE [id number] [place] [facility] CHOICE PLUS [facility] CHOICE PLUS MEDICARE MEDICARE AETNA [place] HMO/POS Care Teams Pharmacy Resource Tech Relationship Specialty Start Date End Date Leo Street MD PCP - General Family Medicine 11/04/22
--- OUTSIDE RECORDS SUMMARY | 2024-09-27 14:36 | XMS_ITS | Encounter Summary ---
Author Organization [facility] Healthcare Address [address] [place] [address] Care Team Providers Care Footwear Stitcher Name Role Phone Roxy Arnold MD Primary Care Provider [phone] MD Primary Care Provider [phone] Encounter Details Date Type Department Care Team (Late st Contact Info) Description 02/12/2021 Telephone [facility] [address] [place] [address] Transcribed Order, Provider Social History Tobacco Use Types Packs/Day Years Used Date Smoking Tobacco: Never Smokeless Tobacco: Never Alcohol Use Standard Drinks/Week Comments Yes 0 (1 standard drink = 0.6 oz pur e alcohol) rare Comments Unknown Sex and Gender Information Value Date Recorded Sex Assigned at Not on file 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
== END 2024-09-27 14:14 | disposition home or self-care (01) ==
PROVIDERS: PCP Emergency Medicine; Visit Provider Obstetrics & Gynecology
DX: R92.8 Other abnormal and inconclusive findings on diagnostic imaging of breast (principal)
CPT/HCPCS: 77061; 77065; G0279

== ENCOUNTER 2025-02-28 13:23 | Outpatient (CLI) | payer OTHER, MEDICARE, SELFPAY ==
--- NOTE | ~2025-02-28 | MM_ITS ---
EXAMINATION: MM diagnostic aranza BI w j carlos HISTORY: 6 month follow-up right breast calcifications TECHNIQUE: Additional images of the right breast]] were performed using full field digital mammography. Spot magnification images of the right breast were obtained. Bilateral craniocaudal, medial lateral and mediolateral oblique projections were obtained. 3-D tomosynthesis were also obtained and synthetic 2- D images were generated. CAD analysis was submitted and interpreted. ] COMPARISON: Mammograms from 02/06/2024 and 06/10/2023 BREAST PARENCHYMAL COMPOSITION: There are scattered areas of fibroglandular density FINDINGS: MAMMOGRAPHIC FINDINGS: No masses or areas of architectural distortion. Interval increase in the number of coarse heterogeneous calcifications in the right breast at the 3:00 position, 8.1 cm from the nipple. The calcifications are suspicious. A stereotactic biopsy is recommended. No suspicious calcifications in the left breast. IMPRESSION/RECOMMENDATION: 1.Interval increase in the number of coarse heterogeneous calcifications in the right breast at the 3:00 position, 8.1 cm from the nipple. The calcifications are suspicious. A stereotactic biopsy is recommended. 2.No mammographic evidence for malignancy in the left breast. BIRADS 4-Suspicious Protocol insures that results of the study are called and/or faxed to the referring clinician's office and documented in the patient's chart critical findings protocol. Reviewed, dictated and finalized at location Q. IMPRESSION/RECOMMENDATION: 1.Interval increase in the number of coarse heterogeneous calcifications in the right breast at the 3:00 position, 8.1 cm from the nipple. The calcifications are suspicious. A stereotactic biopsy is recommended. 2.No mammographic evidence for malignancy in the left breast. BIRADS 4-Suspicious Protocol insures that results of the study are called and/or faxed to the refer ring clinician's office and documented in the patient's chart critical findings protocol.
--- OUTSIDE RECORDS SUMMARY | 2025-02-28 13:28 | XMS_ITS | Clinical Summary ---
Author Organization [facility] Address [address] [place] [address] Phone Care Team Providers Care Commissioning Agent Name Role Phone Leo Street MD Primary Care Provider [phone] Allergies Active Allergy Reactions Criticality Noted Date [...] 2 Active fluticasone propionate (FLONASE) 50 mcg/spray [place], Suspension nasal inhaler Administer 1 [place] in each nostril daily. Active pantoprazole (PROTONIX) [...] Overview (03/24/2017): MS Medication History: 1. Copaxone: 2976-3580 2. Rebif: 0599-8862 Injection fatigue. 3. Tysabri: 05/2009-05/2011. Due to cost. 4. Rebif: 06/2011-08/2011. 5. 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 Gender Identity Not on file Sexual Orientation [...] 1:54 PM CDT Height 165.1 cm (5' 5) 12/01/2023 1:54 PM CDT Body Mass Index 39.67 12/01/2023 1:54 PM CDT Plan of Treatment Upcoming Encounters Date Type Department Care Team (Late st Contact Info) Description 05/07/2025 3:30 PM MIXED CROP FARMER Office Visit [facility] Oncology and Hematology - [place] [address] [place] [address] Biju Reeves MD [address] [facility] [address] [place] [address] Health Maintenance Due Date Last Done Comments HEPATITIS B VACCINES (1 of 3 - 19+ 3-dose series) 1985 HPV/Cotest (21-29) 1987 CERVICAL CANCER SCREENING 1996 HPV/Cotest (30-65) 1996 PAP SMEAR 1996 BREAST CANCER SCREENING 2006 COLORECTAL SCREENING 2011 Colorectal Cancer Screening 2011 FIT-DNA Q 3 years 2011 FIT/FOBT Q 1 year 2011 Flex Sig/CT Colonography Q 5 years 2011 INFLUENZA VACCINE (#1) 2025 2, 03/17/2021, 03/16/2020, Additional history exists DTAP/TDAP/TD VACCINES (3 - T d or Tdap) 11/27/2031 11/26/2021, 03/20/2021 ZOSTER VACCINE Completed 09/27/2021, 07/28/2021 Medical Devices Implanted Type Area Vegetable Washer Device Identifier Shelf Expiration Date Model / Serial / Lot Sealant Floseal 10ml [id number] - [id number] Implanted:Qty : 1 on 03/08/2019 by Mayte Short MD at [facility] Sealant N/A: Spine Lumbar FUENTES- BIOSCIENCE 12/14/2019 [id number] / / [id number] Nushield 1.6cm Allograft Implanted:Qty : 1 on 03/08/2019 by Mayte Short MD at [facility] Tissue N/A: Spine Lumbar ORGANOGENESIS 11/25/2023 [id number] / [id number] / Insurance RX OPT[employer] RX Member Subscriber Plan / Payer (Ef fective 2019-Present) Name:Abran Antony Relation to Subscriber:Self Name:Abran Antony Subscriber ID:Not on file Payer ID:Not on file Group ID:[id number] Type:RX Commercial Address: [place] OPTIONS PPO [id number] MEDICARE PART A AND B OPTIONS PPO [id number] MEDICARE PART A AND B Advance Directives For more information, please contact: [phone] * Full Code (Latest Code Status on File) Date Activated Date Inactivated Comments 03/08/2019 8:52 AM 03/09/2019 12:16 PM Care Teams Commissioning Agent Relationship Specialty Start Date End Date Leo Street MD [facility] [place] [address] PCP - General Family Practice 12/01/23
--- OUTSIDE RECORDS SUMMARY | 2025-02-28 13:28 | XMS_ITS | Encounter Summary ---
Author Organization [facility] Healthcare Address [address] [place] [address] Care Team Providers Care Computer Processing Scheduler Name Role Phone Roxy Arnold MD Primary Care Provider [phone] MD Primary Care Provider [phone] Leatha Lara MD Primary Care Provider [phone] Encounter Details Date Type Department Care Team (Late st Contact Info) Description 02/12/2021 Telephone [facility] - Imaging [address] [place] [address] Transcribed Order, Provider Social History Tobacco Use Types Packs/Day Years Used Date Smoking Tobacco: Never Smokeless Tobacco: Never Alcohol Use Standard Drinks/Week Comments Yes 0 (1 standard drink = 0.6 oz pur e alcohol) rare Comments Unknown Sex and Gender Information Value Date Recorded Sex Assigned at Not on file 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 Gender Identity Not on file Sexual Orientation Not on file documented as of this encounter Plan of Treatment Not on file documented as of this encounter Visit Diagnoses Not on filedocumented in this encounter Care Teams Computer Processing Scheduler Relationship Specialty Start Date End Date Roxy Arnold MD [address] [place] [address] PCP - General Family Medicine 10/24/17 11/03/[address] MD [address] [place] [address] PCP - General Family Medicine 11/04/22 11/14/24 Leatha Lara MD [address] [place] [address] PCP - General Family Medicine 11/15/24 documented as of this encounter
--- OUTSIDE RECORDS SUMMARY | 2025-02-28 13:28 | XMS_ITS | Encounter Summary ---
Author Organization [facility] Healthcare Address [address] [place] [address] Care Team Providers Care Sustainability Officer Name Role Phone Roxy Arnold MD Primary Care Provider [phone] MD Primary Care Provider [phone] Leatha Lara MD Primary Care Provider [phone] Encounter Details Date Type Department Care Team (Late st Contact Info) Description 12/25/2019 Telephone [facility] [address] [place] [address] [place], [place] Social History Tobacco Use Types Packs/Day Years Used Date Smoking Tobacco: Never Smokeless Tobacco: Never Alcohol Use Standard Drinks/Week Comments Yes 0 (1 standard drink = 0.6 oz pur e alcohol) rare Comments Unknown Sex and Gender Information Value Date Recorded Sex Assigned at Not on file Legal Sex Female 6:47 PM PROCESS SPECIALIST Gender Identity Not on file Sexual Orientation Not on file documented as of this encounter Plan of Treatment Not on file documented as of this encounter Visit Diagnoses Not on filedocumented in this encounter Care Teams Sustainability Officer Relationship Specialty Start Date End Date Roxy Arnold MD [address] [place] [address] PCP - General Family Medicine 10/24/17 11/03/[address] MD [address] [place] [address] PCP - General Family Medicine 11/04/22 11/14/24 Leatha Lara MD [address] [place] [address] PCP - General Family Medicine 11/15/24 documented as of this encounter
--- OUTSIDE RECORDS SUMMARY | 2025-02-28 13:29 | XMS_ITS | Clinical Summary ---
Author Organization [facility] Address [address] [place] [address] Care Team Providers Care Freight Loading Supervisor Name Role Phone Unavailable Primary Care Provider [...] Screening with HPV 1996 Mammogram Screening 2006 Pneumococcal Vaccine: 50+ Ye ars (1 of 1 - PCV) 2016 Zoster Vaccines (1 of 2) 2016 COVID-19 Vaccine ( - 2023-2 5 season) 2025 Meningococcal B Vaccine Aged Out No l onger eligible based on patient's age to complete this topic Meningococcal Vaccine Aged Out No garland ubaldo eligible based on patient's age to complete this topic RSV Immunizations Under 20 Months Aged Out No longer eligible based on patient's age to complete this topic
--- OUTSIDE RECORDS SUMMARY | 2025-02-28 13:29 | XMS_ITS | Clinical Summary ---
Author Organization [facility] Address [address] [place] [address] Care Team Providers Care Manager Production Name Role Phone Leatha Lara MD Primary Care Provider [phone] Allergies Active Allergy Reactions Criticality Noted Date [...] estradioL (ESTRACE) 2 mg tablet 3 Active Ponvory 14-Day Starter Pack 2 mg (2) - 10 mg (3) tablets,dose packIndications :Multiple sclerosis (HCC) Take 1 tablet daily, following titration instruction. 14 tablet 4 Active cetirizine (ZyrTEC) 10 mg tablet Take 1 tablet (10 mg total) by mouth daily Active omeprazole (PriLOSEC) 40 mg capsule Take 1 capsule (40 mg total) by mouth daily Active POTASSIUM ACETATE MISC Active ARIPiprazole (ABILIFY) 2 mg tablet Take 1 tablet (2 mg total) by mouth daily Active vibegron (Gemtesa) 75 mg tabletIndicatio ns:Multiple sclerosis (HCC) Take 75 mg by mouth daily 60 tablet 3 5 Active Ponvory 20 mg tabletIndicatio ns:Multiple sclerosis (HCC) TAKE 1 TABLET BY MOUTH DAILY 30 tablet 5 5 Active modafiniL (PROVIGIL) 200 mg tablet TAKE 1 TABLET BY MOUTH TWICE A DAY 180 tablet 1 5 Active Active Problems Problem Noted Date Diagnosed Date Alternating constipation and diarrhea 05/05/2024 Psychosocial stressors 05/05/2024 Cognitive dysfunction accompanying multiple scle rosis 06/24/2019 Daytime hypersomnolence 06/24/2019 Chronic fatigue 06/24/2019 Neurogenic dysfunction of the urinary bladder Leg pain, bilateral 05/13/2018 Multiple sclerosis (CMS/HCC) 10/27/2017 Overview (05/05/2024): MS Medication History: RRMS Symptom onset and diagnosis:1992 1. Copaxone: 5459-8627: clinical breakthrough disease 2. Rebif: 8141-9625 Injection fatigue. 3. Tysabri: 05/2009-05/2011. Due to cost. 4. Rebif: 06/2011-08/2011 5. Gilenya 10/20/2012-2022 6. fingolimod: Assessment & Plan (11/15/2024 1:03 PM CDT): The patient is presenting for follow up of multiple sclerosis. She reports no definitively new symptoms since her last visit. She has established recently with a new primary care physician who prescribed Abilify 2 mg nightly and a cholesterol medication. She reports ongoing fatigue in both legs when she describes as h itting a wall at points throughout the day. She reports no clear change in her walking distance. She continues to have ongoing bladder issues for which she takes Gemtesa. These have improved her nighttime awakenings for urination. She transitioned as opposed to Ponvory this year due to GI side effects from Zeposia. She has not experienced any GI side effects related to Ponvory. She reports some ongoing cognitive difficulties which she describes as difficulty with word recall. Her previous brain MRI from February, showed no new or enhancing lesions. We discussed ongoing management of her multiple sclerosis. Given that she is tolerating Ponvory well without clear clinical evidence of new disease activity I recommended continuing this medication. I will obtain an updated brain cervical MRI to screen for new disease activity. I will obtain blood work today to ensure tolerability of Ponvory. We discussed obtaining an annual skin examination given the slightly higher risk of skin cancer on Ponvory. The patient has a family history of skin cancer. I will place a referral to Dermatology to schedule this visit. I will also place a referral to physical therapy for evaluation treatment to help with ongoing weakness. I will place a referral for neuropsychology and give the patient a number for Dr. Bartolo Puga so she can call make an appointment. Provide the patient with tips to improve sleep hygiene. Hopefully, with the addition of her new anxiety medication her sleep will also improve. I will see the patient back in follow up instructed her to reach out if any questions arise before next visit. I will continue modafinil 200 mg twice daily. 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 High risk medication use 10/27/2017 Weakness of both hands 10/27/2017 Migraine Encounters Date Type Department Care Team Description 12/25/2024 2:57 PM CDT - 12/25/2024 11:59 PM CDT Hospital Encounter [facility] - Imaging [address] [place] [address] Multiple sclerosis (HCC) Discharge Disposition: Discharge to home or self care 12/25/2024 2:57 PM CDT - 12/25/2024 11:59 PM CDT Hospital Encounter [facility] - Imaging [address] [place] [address] Multiple sclerosis (HCC) Discharge Disposition: Discharge to home or self care from Last 3 Months Immunizations Immunization Administration Dates Next Due Flucelvax Influenza Quad 03/23/2019 Influenza, Quadrivalent, Rec ombinant, Egg Free, Preservative Free, Intramuscular 03/26/2022 Influenza, Quadrivalent, Spl it, Preservative Free, Intramuscular 03/17/2021,03/16/2020,02/24/2018 Tdap 11/26/2021,03/20/2021 ZOSTER Recombinant 09/27/2021,07/28/2021 Surgical History Surgery Date Site/Laterality Comments SPINE SURGERY GALLBLADDER SURGERY HYSTERECTOMY TONSILLECTOMY Medical History Medical History Date Comments MS (multiple sclerosis) Migraine Family History Medical History Relation Name [...] on file 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 Gender Identity Not on file Sexual Orientation Not on file Obstetrics History Last Filed Vital Signs Vital Sign Reading Time Taken Comments Blood Pressure 126/81 11/15/2024 12:08 PM CDT Pulse 110 11/15/2024 12:08 PM CDT Temperature 36.9 C (98.5 F) 11/15/2024 12:08 PM CDT Respiratory Rate 16 02/10/2021 2:46 PM CDT Oxygen Saturation 100% 11/15/2024 12:08 PM CDT Inhaled Oxygen Concentration - - Weight 108.9 kg (240 lb) 11/15/2024 12:08 PM CDT Height 162.6 cm (5' 4) 11/15/2024 12:08 PM CDT Body Mass Index 41.2 11/15/2024 12:08 PM CDT Plan of Treatment Health Maintenance Due Date Last Done Comments Breast Cancer Screening-Mammogram 1966 Colon Cancer Screening-Colonoscopy 1966 Depression Screening 1966 Hepatitis C Screening 1966 Hepatitis B Screening 1984 Regular Well Visit/Exam 18-64 1984 Covid-19 Vaccine (2024- season) 2025 04/07/2022, 11/26/2021, 07/27/2021, Additional history exists Influenza Vaccine (#1) 2025 2, 03/17/2021, 03/16/2020, Additional history exists DTaP/Tdap/Td Vaccine (3 - Td or Tdap) 11/27/2031 11/26/2021, 03/20/2021 Zoster Vaccine Completed 09/27/2021, 07/28/2021 Pneumococcal vaccine <65 Aged Out No longer eligible based on patient's age to complete this topic Medical Devices Implanted Type Area Field Underwriter Device Identifier Shelf Expiration Date Model / Serial / Lot Other - See Comments-2021 Implanted:02/2022 (Quantity not on file) Other - see comments Right: [employer] Procedures Procedure Name Priority Date/Time Associated Diagnosis Comments MRI BRAIN W WO CONTRAST Routine 12/25/2024 4:37 PM CDT Multiple sclerosis (HCC) MRI CERVICAL SPINE W WO CONTRAST Routine 12/25/2024 4:37 PM CDT Multiple sclerosis (HCC) from Last 3 Months Results * MRI Brain W WO Contrast (12/25/2024 4:37 PM CDT) Anatomical Region Laterality Modality Head and Neck N/A Magnetic Resonan ce 12/26/2024 11:5 8 AM CDT Impressions 12/26/2024 12:15 PM CDT 1. No significant interval change in white matter lesions in the brain or cervical spinal cord. 2. Tethering of the spinal cord posteriorly, similar to prior exam, which may be related to prior surgery. Dictated by: Rob Castro M.D. The radiology attending physician has personally reviewed this study, and had reviewed and/or edited this written report and agrees with it. Electronically signed by: Peter Malik M.D. Narrative 12/26/2024 12:15 PM CDT EXAMINATION: 1. Magnetic resonance imaging (MRI) of the brain and brainstem without and with contrast 2. Magnetic resonance imaging (MRI) of the cervical spine without and with contrast HISTORY: Multiple sclerosis; Central vein sign sequencing, TECHNIQUE: Multiplanar multi-weighted MRI of the brain, brainstem was performed without and with intravenous contrast using the multiple sclerosis protocol. Multiplanar multi-weighted MRI of the cervical spine was performed without and with intravenous contrast using the standard protocol. Scanner: Wray Field Strength: 3T Contrast information: 20 mL Gadoterate Meglumine IV The post-contrast scan was performed approximately 5 minutes after IV contrast administration. COMPARISON: MRI brain 03/01/2024. MR C-spine and MR brain 04/20/2022 FINDINGS: BRAIN: No new lesions. There are multiple foci of T2W/FLAIR hyperintensity within the brain white matter. This includes periventricular, juxtacortical, and subcortical lesions. The central vein sign is identified in a majority of the white matter lesions. Redemonstration of mildly increased T2 signal within the left optic nerve. Chronic lacunar infarcts within the right cerebellum. CERVICAL SPINE: Motion degraded exam. There is no interval change. T2W/STIR hyperintensity is again noted at C3-T1 with large region of myelomalacia at C4-C5. For reference, T2 hyperintensity within the left aspect of the cord at C4 level. No definite new enhancing lesion. There appears to be tethering of the spinal cord posteriorly, similar to prior exam, which may be related to prior surgery. Procedure Note Peter Malik MD PhD - 12/26/2024 EXAMINATION: 1. Magnetic resonance imaging (MRI) of the brain and brainstem without and with contrast 2. Magnetic resonance imaging (MRI) of the cervical spine without and with contrast HISTORY: Multiple sclerosis; Central vein sign sequencing, TECHNIQUE: Multiplanar multi-weighted MRI of the brain, brainstem was performed without and with intravenous contrast using the multiple sclerosis protocol. Multiplanar multi-weighted MRI of the cervical spine was performed without and with intravenous contrast using the standard protocol. Scanner: Gosia Field Strength: 3T Contrast information: 20 mL Gadoterate Meglumine IV The post-contrast scan was performed approximately 5 minutes after IV contrast administration. COMPARISON: MRI brain 03/01/2024. MR C-spine and MR brain 04/20/2022 FINDINGS: BRAIN: No new lesions. There are multiple foci of T2W/FLAIR hyperintensity within the brain white matter. This includes periventricular, juxtacortical, and subcortical lesions. The central vein sign is identified in a majority of the white matter lesions. Redemonstration of mildly increased T2 signal within the left optic nerve. Chronic lacunar infarcts within the right cerebellum. CERVICAL SPINE: Motion degraded exam. There is no interval change. T2W/STIR hyperintensity is again noted at C3-T1 with large region of myelomalacia at C4-C5. For reference, T2 hyperintensity within the left aspect of the cord at C4 level. No definite new enhancing lesion. There appears to be tethering of the spinal cord posteriorly, similar to prior exam, which may be related to prior surgery. IMPRESSION: 1. No significant interval change in white matter lesions in the brain or cervical spinal cord. 2. Tethering of the spinal cord posteriorly, similar to prior exam, which may be related to prior surgery. Dictated by: Rob Castro M.D. The radiology attending physician has personally reviewed this study, and had reviewed and/or edited this written report and agrees with it. Electronically signed by: Peter Malik M.D. Sloan De La Cruz MD [facility] [place] MRI PROCEDURES Fi nal Result * MRI Cervical Spine W WO Contrast (12/25/2024 4:37 PM CDT) Anatomical Region Laterality Modality Spine N/A Magnetic Resonan ce 12/26/2024 11:5 8 AM CDT Impressions 12/26/2024 12:15 PM CDT 1. No significant interval change in white matter lesions in the brain or cervical spinal cord. 2. Tethering of the spinal cord posteriorly, similar to prior exam, which may be related to prior surgery. Dictated by: Rob Castro M.D. The radiology attending physician has personally reviewed this study, and had reviewed and/or edited this written report and agrees with it. Electronically signed by: Peter Malik M.D. Narrative 12/26/2024 12:15 PM CDT EXAMINATION: 1. Magnetic resonance imaging (MRI) of the brain and brainstem without and with contrast 2. Magnetic resonance imaging (MRI) of the cervical spine without and with contrast HISTORY: Multiple sclerosis; Central vein sign sequencing, TECHNIQUE: Multiplanar multi-weighted MRI of the brain, brainstem was performed without and with intravenous contrast using the multiple sclerosis protocol. Multiplanar multi-weighted MRI of the cervical spine was performed without and with intravenous contrast using the standard protocol. Scanner: Wray Field Strength: 3T Contrast information: 20 mL Gadoterate Meglumine IV The post-contrast scan was performed approximately 5 minutes after IV contrast administration. COMPARISON: MRI brain 03/01/2024. MR C-spine and MR brain 04/20/2022 FINDINGS: BRAIN: No new lesions. There are multiple foci of T2W/FLAIR hyperintensity within the brain white matter. This includes periventricular, juxtacortical, and subcortical lesions. The central vein sign is identified in a majority of the white matter lesions. Redemonstration of mildly increased T2 signal within the left optic nerve. Chronic lacunar infarcts within the right cerebellum. CERVICAL SPINE: Motion degraded exam. There is no interval change. T2W/STIR hyperintensity is again noted at C3-T1 with large region of myelomalacia at C4-C5. For reference, T2 hyperintensity within the left aspect of the cord at C4 level. No definite new enhancing lesion. There appears to be tethering of the spinal cord posteriorly, similar to prior exam, which may be related to prior surgery. Procedure Note Peter Malik MD PhD - 12/26/2024 EXAMINATION: 1. Magnetic resonance imaging (MRI) of the brain and brainstem without and with contrast 2. Magnetic resonance imaging (MRI) of the cervical spine without and with contrast HISTORY: Multiple sclerosis; Central vein sign sequencing, TECHNIQUE: Multiplanar multi-weighted MRI of the brain, brainstem was performed without and with intravenous contrast using the multiple sclerosis protocol. Multiplanar multi-weighted MRI of the cervical spine was performed without and with intravenous contrast using the standard protocol. Scanner: Gosia Field Strength: 3T Contrast information: 20 mL Gadoterate Meglumine IV The post-contrast scan was performed approximately 5 minutes after IV contrast administration. COMPARISON: MRI brain 03/01/2024. MR C-spine and MR brain 04/20/2022 FINDINGS: BRAIN: No new lesions. There are multiple foci of T2W/FLAIR hyperintensity within the brain white matter. This includes periventricular, juxtacortical, and subcortical lesions. The central vein sign is identified in a majority of the white matter lesions. Redemonstration of mildly increased T2 signal within the left optic nerve. Chronic lacunar infarcts within the right cerebellum. CERVICAL SPINE: Motion degraded exam. There is no interval change. T2W/STIR hyperintensity is again noted at C3-T1 with large region of myelomalacia at C4-C5. For reference, T2 hyperintensity within the left aspect of the cord at C4 level. No definite new enhancing lesion. There appears to be tethering of the spinal cord posteriorly, similar to prior exam, which may be related to prior surgery. IMPRESSION: 1. No significant interval change in white matter lesions in the brain or cervical spinal cord. 2. Tethering of the spinal cord posteriorly, similar to prior exam, which may be related to prior surgery. Dictated by: Rob Castro M.D. The radiology attending physician has personally reviewed this study, and had reviewed and/or edited this written report and agrees with it. Electronically signed by: Peter Malik M.D. Sloan De La Cruz MD [facility] MRI PROCEDURES Fi nal Result from Last 3 Months Insurance MEDICARE TNA EXCHANGE [id number] HI [facility] CHOICE PLUS [facility] CHOICE PLUS MEDICARE MEDICARE AETNA COVENTRY HMO/POS Care Teams Manager Production Relationship Specialty Start Date End Date Leatha Lara MD PCP - General Family Medicine 11/15/24
== END 2025-02-28 13:24 | disposition home or self-care (01) ==
LOC: ANHFOHIMG 13:24
PROVIDERS: PCP Family Medicine; Visit Provider Obstetrics & Gynecology
DX: R92.8 Other abnormal and inconclusive findings on diagnostic imaging of breast (principal)
CPT/HCPCS: 77062; 77066; G0279

== ENCOUNTER 2025-03-28 13:54 | Outpatient (CLI) | payer OTHER, MEDICARE, SELFPAY ==
--- NOTE | ~2025-03-28 | MM_ITS ---
EXAMINATION: MM stereotactic bx RT DATE: Bharat Narvaez M.D. INDICATION: Abnormal mammogram with [ in the breast. Stereotactic core biopsy is requested evaluate for malignancy.] BREAST PARENCHYMAL COMPOSITION: TECHNIQUE AND FINDINGS: The risks and potential benefits of the procedure were discussed with the patient and written informed consent was obtained. The patient was placed in the upright position clustered at the table with the right breast in lateral medial compression, and the area of interest was localized and targeted ut ilizing digital imaging with stereotaxis. After sterile preparation of the skin, 1% lidocaine was utilized for local anesthesia at the skin puncture site and 1% lidocaine with epinephrine was utilized for deeper local anesthesia/is about the biopsy site. Review of prior images demonstrate the calcifications previously described on mammogram dated 02/28/2025 relocated closer to the 5:30 position. There is a second cluster of calcifications in the upper outer quadrant of the right breast at approximately the 9:00 position which corresponded to the calcifications seen on medial lateral and MLO view. These calcifications were targeted. A 9G Brevera vacuum assisted biopsy needle was advanced to the level of the calcification of interest from a lateral approach utilizing stereotactic guidance and a total of 6 tissue core biopsies were obtained. A specimen radiograph demonstrates that the calcifications of interest are included within the tissue cores. A tissue marker clip was then placed at the biopsy site. The needle was removed and hemostasis was achieved. The patient tolerated the procedure well and there is no evidence of significant immediate complication. The patient was given verbal as well as written postprocedural instructions prior to discharge from the department. Tissue cores were submitted to surgical pathology for histologic analysis. A 2-view right unilateral digital mammogram was obtained post procedure and this demonstrates that the tissue marker clip is in expected position.] IMPRESSION: 1. Successful stereotactic biopsy of calcifications in the upper outer quadrant of the right breast with post procedure mammogram for marker placement. Please refer to pathology report for histologic analysis. Additional cluster of calcifications in the lower inner quadrant of the right breast were not biopsied due to superficial location. Recommend either short-term follow-up 6 month mammogram to assess stability or wire localization biopsy of these calcifications. Reviewed, dictated and finalized at location C. IMPRESSION: 1. Successful stereotactic biopsy of calcifications in the upper outer quadran t of the right breast with post procedure mammogram for marker placement. Plea se refer to pathology report for histologic analysis. Additional cluster of terra cifications in the lower inner quadrant of the right breast were not biopsied d ue to superficial location. Recommend either short-term follow-up 6 month mammo gram to assess stability or wire localization biopsy of these calcifications.
--- OUTSIDE RECORDS SUMMARY | 2025-03-28 13:57 | XMS_ITS | Encounter Summary ---
Author Organization [facility] Healthcare Address [address] [place] [address] Care Team Providers Care Director Of Premium Seat Sales Name Role Phone Roxy Arnold MD Primary Care Provider [phone] MD Primary Care Provider [phone] Leatha Lara MD Primary Care Provider [phone] Belem Norman MD Primary Care Prov ider Encounter Details Date Type Department Care Team (Late st Contact Info) Description 02/12/2021 Telephone [facility] - Imaging [address] [place] [address] Transcribed Order, Provider Social History Tobacco Use Types Packs/Day Years Used Date Smoking Tobacco: Never Smokeless Tobacco: Never Alcohol Use Standard Drinks/Week Comments Yes 0 (1 standard drink = 0.6 oz pur e alcohol) rare Comments Unknown Sex and Gender Information Value Date Recorded Sex Assigned at Not on file 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 Gender Identity Not on file Sexual Orientation Not on file documented as of this encounter Plan of Treatment Not on file documented as of this encounter Visit Diagnoses Not on filedocumented in this encounter Care Teams Director Of Premium Seat Sales Relationship Specialty Start Date End Date Roxy Arnold MD [address] [place] [address] PCP - General Family Medicine 10/24/17 11/03/[address] MD [address] [place] [address] PCP - General Family Medicine 11/04/22 11/14/24 Leatha Lara MD [address] [place] [address] PCP - General Family Medicine 11/15/24 03/13/25 Belem Norman MD [address] [facility] [address] [place] [address] PCP - General Family Medicine 03/14/25 documented as of this encounter
--- OUTSIDE RECORDS SUMMARY | 2025-03-28 13:57 | XMS_ITS | Clinical Summary ---
Author Organization [facility] Address [address] [place] [address] Phone Care Team Providers Care Safe Expert Name Role Phone Leo Street MD Primary Care Provider Allergies Active Allergy Reactions Criticality Noted Date [...] fingolimod (GILENYA) 0.5 mg CapsuleIndicatio ns:Multiple sclerosis Take 1 Capsule (0.5 mg) by mouth [...] 2 Active fluticasone propionate (FLONASE) 50 mcg/spray [place], Suspension nasal inhaler Administer 1 [place] in each nostril daily. Active pantoprazole (PROTONIX) [...] Overview (03/24/2017): MS Medication History: 1. Copaxone: 5898-1411 2. Rebif: 3834-2129 Injection fatigue. 3. Tysabri: 05/2009-05/2011. Due to cost. 4. Rebif: 06/2011-08/2011. 5. 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 [address] [place] [address] Biju Reeves MD [address] [facility] [address] [place] [address] Health Maintenance Due Date Last [...] 09/27/2021, 07/28/2021 Medical Devices Implanted Type Area Senior Analytical Chemist Device Identifier Shelf Expiration Date Model / Serial / Lot Sealant Floseal 10ml [id number] - [id number] Implanted:Qty : 1 on 03/08/2019 by Mayte Short MD at [facility] Sealant N/A: Spine Lumbar FUENTES- BIOSCIENCE 12/14/2019 [id number] / / [id number] [place] 1.6cm Allograft Implanted:Qty : 1 on 03/08/2019 by Mayte Short MD at [facility] Tissue N/A: Spine Lumbar ORGANOGENESIS 11/25/2023 [id number] / [id number] / Insurance RX OPT[employer] RX Member Subscriber Plan / Payer (Ef fective 2019-Present) Name:Abran Antony Relation to Subscriber:Self Name:Abran Antony Subscriber ID:Not on file Payer ID:Not on file Group ID:[id number] Type:RX Commercial Address: [place] OPTIONS PPO 32015 MEDICARE PART A AND B OPTIONS PPO [id number] MEDICARE PART A AND B Advance Directives For more information, please contact: [phone] * Full Code (Latest Code Status on File) Date Activated Date Inactivated Comments 03/08/2019 8:52 AM 03/09/2019 12:16 PM Care Teams Safe Expert Relationship Specialty Start Date End Date Leo Street MD [facility] [facility] [address] PCP - General Family Practice 12/01/23
--- OUTSIDE RECORDS SUMMARY | 2025-03-28 13:57 | XMS_ITS | Encounter Summary ---
Author Organization [facility] Healthcare Address [address] [place] [address] Care Team Providers Care Food Science Technician Name Role Phone Roxy Arnold MD Primary Care Provider [phone] MD Primary Care Provider [phone] Leatha Lara MD Primary Care Provider [phone] Belem Norman MD Primary Care Prov ider Encounter Details Date Type Department Care Team (Late st Contact Info) Description 12/25/2019 Telephone [facility] Neuro Diagnostics [address] [place] [address] [place], [place] Social History Tobacco Use Types Packs/Day Years Used Date Smoking Tobacco: Never Smokeless Tobacco: Never Alcohol Use Standard Drinks/Week Comments Yes 0 (1 standard drink = 0.6 oz pur e alcohol) rare Comments Unknown Sex and Gender Information Value Date Recorded Sex Assigned at Not on file 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 Gender Identity Not on file Sexual Orientation Not on file documented as of this encounter Plan of Treatment Not on file documented as of this encounter Visit Diagnoses Not on filedocumented in this encounter Care Teams Food Science Technician Relationship Specialty Start Date End Date Royx Arnold MD [address] [place] [address] PCP - General Family Medicine 10/24/17 11/03/[address] MD [address] [place] [address] PCP - General Family Medicine 11/04/22 11/14/24 Leatha Lara MD [address] [place] [address] PCP - General Family Medicine 11/15/24 03/13/25 Belem Norman MD [address] [facility] [place] [address] PCP - General Family Medicine 03/14/25 documented as of this encounter
--- OUTSIDE RECORDS SUMMARY | 2025-03-28 13:58 | XMS_ITS | Clinical Summary ---
Author Organization [facility] Address [address] [place] [address] Care Team Providers Care Marine Electronics Repairer Name Role Phone Unavailable Primary Care Provider [...]
--- OUTSIDE RECORDS SUMMARY | 2025-03-28 13:58 | XMS_ITS | Clinical Summary ---
Author Organization [facility] Address [address] [place] [address] Care Team Providers Care Senior Environmental Technician Name Role Phone Belem Norman MD Primary Care Prov ider Allergies Active Allergy Reactions Criticality Noted Date Comments Sulfamethoxazole Hives High 01/15/2025 Sulfamethoxazole-Trimethoprim Hives Medium 2015 Trimethoprim Hives High 01/15/2025 Medications amLODIPine (NORVASC) 10 mg tablet 8 Active montelukast (SINGULAIR) 10 mg tablet 8 Active venlafaxine XR (EFFEXOR-XR) 150 mg 24 hr capsule 8 Active calcium carbonate-vit D3-min 600 mg calcium- 200 unit tablet Take by mouth. Act nimco b complex vitamins capsule Take 1 capsule by mouth daily Active cranberry 400 mg capsule Take by mouth. Acti ve butalbital-asp irin-caffeine (FIORINAL) 50-325-40 mg capsule TAKE 1 CAPSULE BY MOUTH EVERY 4 HOURS 0 Active fluticasone propionate (FLONASE) 50 mcg/actuation nasal spray Administer 1 spray into each nostril daily Active irbesartan-hyd roCHLOROthiazi de (AVALIDE) 300-12.5 mg per tablet Take 1 tablet by mouth daily [address] (PROTONIX) 40 mg EC tablet 2 Active venlafaxine XR (EFFEXOR-XR) 75 mg 24 hr capsule Take by mouth daily 3 Active estradioL (ESTRACE) 2 mg tablet 3 Active cetirizine (ZyrTEC) 10 mg tablet Take 1 tablet (10 mg total) by mouth daily Active omeprazole (PriLOSEC) 40 mg capsule Take 1 capsule (40 mg total) by mouth daily Active POTASSIUM ACETATE MISC Active ARIPiprazole (ABILIFY) 2 mg tablet Take 1 tablet (2 mg total) by mouth daily Active vibegron (Gemtesa) 75 mg tabletIndicati ons:Multiple sclerosis Take 75 mg by mouth daily 60 tablet 3 5 Active Ponvory 20 mg tabletIndicati ons:Multiple sclerosis TAKE 1 TABLET BY MOUTH DAILY 30 tablet 5 5 Active modafiniL (PROVIGIL) 200 mg tablet TAKE 1 TABLET BY MOUTH TWICE A DAY 180 tablet 1 5 Active rosuvastatin (CRESTOR) 5 mg tablet TAKE 1 TABLET BY MOUTH TWICE WEEKLY Active Ponvory 14-Day Starter Pack 2 mg (2) - 10 mg (3) tablets,dose packIndication s:Multiple sclerosis Take 1 tablet daily, following titration instruction. 14 tablet 4 03/14/20 25 Discontinu ed(Patient Reported) Active Problems Problem Noted Date Diagnosed Date Alternating constipation and diarrhea 05/05/2024 Psychosocial stressors 05/05/2024 Cognitive dysfunction accompanying multiple scle rosis 06/24/2019 Daytime hypersomnolence 06/24/2019 Chronic fatigue 06/24/2019 Neurogenic dysfunction of the urinary bladder Leg pain, bilateral 05/13/2018 Multiple sclerosis (CMS/HCC) 10/27/2017 Overview (05/05/2024): MS Medication History: RRMS Symptom onset and diagnosis:1992 1. Copaxone: 2452-7998: clinical breakthrough disease 2. Rebif: 9459-3990 Injection fatigue. 3. Tysabri: 05/2009-05/2011. Due to cost. 4. Rebif: 06/2011-08/2011 5. Gilenya 10/20/2012-2022 6. fingolimod: 1418-4005 Assessment & Plan (03/14/2025 5:30 PM CDT): -Chronic condition 1st diagnosed in 1992, patient does follow with Neurology and is currently on medication -No acute flare at this time, recommend patient continue to follow with Neurology and monitor for worsening of symptoms Assessment & Plan (11/15/2024 1:03 PM CDT): [...] Encounters Date Type Department Care Team Description 03/14/2025 3:30 PM CDT Office Visit [facility] at [address] [place] [address] Belem Norman MD Multiple sclerosis (CMS/[facility]) (HCC) (Primary Dx) from Last 3 Months Immunizations Immunization Administration Dates Next Due Flucelvax Influenza Quad 03/23/2019 H1N1 All Forms 06/13/2009 Influenza, Quadrivalent, Rec ombinant, Egg Free, Preservative Free, Intramuscular 03/26/2022 Influenza, Quadrivalent, Spl it, Preservative Free, Intramuscular 03/17/2021,03/16/2020,02/24/2018 Influenza, Trivalent, IM (MDV) ,03/16/2020,03/23/2019,03/04,04/18/2015,04/11/2014,03/16/2012 ,03/27/2011,03/24/2010,02/28/2009,03/27,2006 Pneumococcal Conjugate PCV 13 08/01/2015 Pneumococcal Polysaccharide PPV23 02/28/2009 Tdap 11/26/2021,03/20/2021,06/04/2011 ZOSTER Recombinant 09/27/2021,07/28/2021 Surgical History Surgery Date [...] Not Answered Alcohol Use Standard Drinks/Week Comments Not Currently 0 (1 standard drink = 0.6 oz pur e alcohol) rare PHQ-2 Answer Date Recorded PHQ-2 Total Score (If total score is 3 or more points, staff should administer the PHQ-9) 0 03/14/2025 AUDIT-C Answer Date Recorded Q1: How often do you have a drink containing alcohol? Never 03/14/2025 Q2: How many drinks containi ng alcohol do you have on a typical day when you are drinking? Patient does not drink Q3: How often do you have si x or more drinks on one occasion? 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 Gender Identity Not on file Sexual Orientation Not on file Obstetrics History Last Filed Vital Signs Vital Sign Reading Time Taken Comments Blood Pressure 114/76 03/14/2025 3:37 PM CDT Pulse 98 03/14/2025 3:37 PM CDT Temperature 36.9 C (98.5 F) 11/15/2024 12:08 PM CDT Respiratory Rate 18 03/14/2025 3:37 PM CDT Oxygen Saturation 97% 03/14/2025 3:37 PM CDT Inhaled Oxygen Concentration - - Weight 107.6 kg (237 lb 4.8 oz) 03/14/2025 3:37 PM CDT Height 162.6 cm (5' 4.02) 03/14/2025 3:37 PM CD T Body Mass Index 40.71 03/14/2025 3:37 PM CDT Plan of Treatment Health Maintenance Due Date Last Done Comments Breast Cancer Screening-Mammogram 1966 Regular Well Visit/Exam 18-64 1984 Depression Screening 03/14/2026 03/14/2025 Colon Cancer Screening-Colonoscopy 12/12/2029 12/13/2019 DTaP/Tdap/Td Vaccine (5 - Td or Tdap) 02/22/2034 02/23/2024, 11/26/2021, 03/20/2021, Additional history exists Zoster Vaccine Completed 09/27/2021, 07/28/2021 Influenza Vaccine Completed 02/22/2025, , 03/19/2023, Additional history exists Pneumococcal vaccine <65 Aged Out 025, 02/23/2024, 08/01/2015, Additional history exists No longer eligible based on patient's age to complete this topic Covid-19 Vaccine Completed 02/28/2025, 12/2023, 03/19/2023, Additional history exists Hepatitis B Screening Discontinued Hepatitis C Screening Discontinued Medical Devices Implanted Type Area Plant Protection Officer Device Identifier Shelf Expiration Date Model / Serial / Lot Other - See Comments-2021 Implanted:02/2022 (Quantity not on file) Other - see comments Right: [employer] Insurance MEDICARE AET[employer] EXCHANGE [id number] [place] [facility] CHOICE PLUS [facility] CHOICE PLUS MEDICARE MEDICARE [facility]ET [facility] H[facility]/POS Care Teams Senior Environmental Technician Relationship Specialty Start Date End Date Belem Norman MD [address] [facility] [address] [place] [address] PCP - General Family Medicine 03/14/25
--- NOTE | 2025-03-28 15:58 | S_PTH ---
PATIENT: Missy Young LOC: [facility] U#:[id number] AGE/SX: 59/F ROOM: RE03/28/[address]: Charley Sellers MD : 1965 BED: DIS: 03/28/2025 SPEC #: [id number] RECD: 03/29/25 07:24 STATUS: CLAUDIA RELeanne #: [id number] BLADIMIR: 03/28/25 15:[address]: Charley Sellers DEPT: [facility] Surgical RECD BY: Yomi Baca ENTERED: 03/29/25 07:24 SP TYPE: Surgical OTHR DR: Leatha Lara, Tissues: A - Breast Biopsy Procedures: Hematoxylin and Eosin Stain Gross and Microscopic Level 4
== END 2025-03-28 13:55 | disposition home or self-care (01) ==
PROVIDERS: PCP Family Medicine; Visit Provider Surgery
DX: R92.0 Mammographic microcalcification found on diagnostic imaging of breast (principal); R92.8 Other abnormal and inconclusive findings on diagnostic imaging of breast
CPT/HCPCS: 19081; 88305

== ENCOUNTER 2025-04-04 08:57 | Outpatient (CLI) | payer MEDICARE, OTHER, SELFPAY ==
--- NOTE | ~2025-04-04 | MM_ITS ---
AutoText: MM stereotactic bx RT CLINICAL HISTORY: 59-year-old female with suspicious increase in calcifications at 3:00 location in the right breast who presents for stereotactic core needle biopsy procedure. PROCEDURE: Stereotactic breast biopsy. The patient was brought into the stereotactic suite. A time-out procedure was performed. Preliminary images of the Right breast were obtained to localize the calcifications. The area was then prepped and draped in the usual sterile fashion. 1% lidocaine was administered to the superficial soft tissues and 1% lidocaine without epinephrine was administered to the deeper soft tissues for local anesthesia. A rashawn was made in the skin and the 9 gauge Brevera biopsy needle was inserted through the rashawn and localized to the calcifications with confirmation. Multiple biopsy specimens were obtained. Images of the biopsy specimens demonstrate numerous calcifications corresponding with the suspicious calcifica tions seen on the mammogram. A microclip was placed in the biopsy site at the end of the procedure. Pressure was held at the site of biopsy and entry site for the needle until hemostasis was achieved. The patient tolerated the procedure well with no immediate post procedure complications. The biopsy specimens were sent to pathology for evaluation. Mammograms of the Right breast in the craniocaudal and true lateral projections demonstrate the microclip in good position the biopsy site. IMPRESSION: Technically successful stereotactic biopsy of Right breast calcifications. The patient tolerated the procedure well with no immediate post procedure complications. Pathology report is pending. Reviewed, dictated and finalized at location B. IMPRESSION: Technically successful stereotactic biopsy of Right breast calcific ations. The patient tolerated the procedure well with no immediate post procedu re complications. Pathology report is pending.
--- NOTE | 2025-04-04 10:56 | S_PTH ---
PATIENT: Missy Young LOC: [facility] U#:[id number] AGE/SX: 59/F ROOM: RE04/04/[address]: Charley Sellers MD : 1965 BED: DIS: 04/04/2025 SPEC #: [id number] RECD: 04/04/25 11:52 STATUS: CLAUDIA RELeanne #: [id number] BLADIMIR: 04/04/25 10:[address]: Charley Sellers DEPT: [facility] Surgical RECD BY: Tianna Shukla ENTERED: 04/04/25 12:02 SP TYPE: Surgical OTHR DR: Leatha Lara, Tissues: A - Breast Biopsy B - Breast Biopsy C - Breast Biopsy D - Breast Biopsy E - Breast Biopsy Procedures: Hematoxylin and Eosin Stain Gross and Microscopic Level 4
== END 2025-04-04 08:58 | disposition home or self-care (01) ==
PROVIDERS: PCP Family Medicine; Visit Provider Surgery
DX: N60.11 Diffuse cystic mastopathy of right breast (principal); R92.0 Mammographic microcalcification found on diagnostic imaging of breast; R92.8 Other abnormal and inconclusive findings on diagnostic imaging of breast
CPT/HCPCS: 19081; 88305